=== PATIENT | female | born 1975 | race Caucasian/White ===

== ENCOUNTER → 2018-06-03 10:42 | Outpatient (CLI) | payer BC, SELFPAY ==
--- NOTE | 2018-06-03 11:08 | XR_ITS ---
EXAM: XR lumbar spine min 4V HISTORY: Increasing back pain ITS.REASON: back pain ORDERING PHYSICIAN: Percy Davis MD PATIENT AGE: 43 years COMPARISON: None FINDINGS: Normal alignment. No fracture or dislocation. No lytic or blastic change. No significant degenerative change. The disc spaces are preserved. IMPRESSION: Negative lumbar spine
--- NOTE | 2018-06-03 11:08 | XR_ITS ---
XR hip RT 2-3V w/pelvis HISTORY: ITS.REASON: hip pain ORDERING PHYSICIAN: Percy Davis MD PATIENT AGE: 43 years COMPARISON: None FINDINGS: No fracture or dislocation is evident. No significant degenerative change. No lytic or blastic change. Unremarkable soft tissues. There is an os acetabulum is a normal variant. IMPRESSION: No acute finding. There is a right-sided os acetabulum. This is nonspecific but may be seen with femoral acetabular impingement
[2018-06-03 13:29] LABS: Basophils # 0.1 K/mm3 (0-0.2); Basophils % 0.6 % (0.1-2.0); Eosinophils # 0.2 K/mm3 (0.0-0.4); Eosinophils % 2.2 % (0.1-12.0); Hematocrit 41.7 % (37.0-47.0); Hemoglobin 13.6 g/dL (12.2-16.2); Lymphocytes # 2.5 K/mm3 (0.7-4.5); Lymphocytes % 31.3 K/mm3 (10-50); Mean Corpuscular HGB Conc 32.7 g/dL (31.8-35.4); Mean Corpuscular Hemoglobin 30.6 pg (27.0-31.2); Mean Corpuscular Volume 93.7 fl (81-99); Mean Platelet Volume 9.2 fl (7.4-10.4); Monocytes # 0.6 K/mm3 (0.1-1.0); Monocytes % 7.6 % (1.7-9.3); Neutrophils # 4.7 K/mm3 (1.8-7.8); Neutrophils % 58.3 % (37.0-80.0); Platelet Count 352 K/mm3 (142-424); Red Blood Count 4.45 M/mm3 (4.20-5.40); Red Cell Distribution Width 11.9 % (11.5-17.5); White Blood Count 8.1 K/mm3 (4.8-10.8)
[2018-06-03 13:32] LABS: Alanine Aminotransferase 19 U/L (12-78); Alkaline Phosphatase 65 U/L (46-116); Anion Gap 15.5 mEq/L (5-15); Aspartate Amino Transferase 11 U/L (15-37); Bilirubin,Total 1.6 mg/dL (0.2-1.0); Carbon Dioxide 25 mmol/L (21.0-32.0); Chloride 104 mmol/L (98-107); Potassium 4.5 mmoL/L (3.5-5.1); Sodium 140 mmol/L (136-145); Total Protein,Serum 7.3 gm/dL (6.4-8.2)
[2018-06-03 13:48] LABS: Albumin Level 4.3 gm/dL (3.4-5.0); Albumin/Globulin Ratio 1.4 (1.1-1.8); Blood Urea Nitrogen 13 mg/dL (7-18); Calcium 9.2 mg/dL (8.5-10.1); Glucose 81 mg/dL (74-106)
[2018-06-03 13:51] LABS: Creatinine,Serum 0.77 mg/dL (0.55-1.02); Estimated Glomerular Filt Rate 82 ml/min (>60); GFR (African American) 99 ML/MIN (>60)
[2018-06-03 15:07] LABS: Uric Acid 4.4 mg/dL (2.6-7.2)
[2018-06-03 15:17] LABS: Erythrocyte Sedimentation Rate 12 mm/hr (0-20)
[2018-06-06 05:30] LABS: RA Latex Turbid. <10.0 IU/mL (0.0-13.9)
[2018-06-06 09:42] LABS: Antinuclear Antibodies, IFA Negative (.)
== END ==
LOC: LAB 10:51 → RAD 11:10
PROVIDERS: PCP Emergency Medicine; Visit Provider Emergency Medicine
DX: R53.83 Other fatigue (principal); M54.9 Dorsalgia, unspecified; R52 Pain, unspecified; M25.551 Pain in right hip; M25.552 Pain in left hip
CPT/HCPCS: 72110; 73502; 80053; 84550; 85025; 85651; 86038; 86431

== ENCOUNTER → 2018-06-13 11:03 | Outpatient (POV) | payer BC, SELFPAY | PROVIDERS: Family Provider Emergency Medicine; PCP Emergency Medicine; Visit Provider Specialist | DX: M25.539 Pain in unspecified wrist (principal) | CPT/HCPCS: 95886; 95909 ==

== ENCOUNTER → 2018-06-15 07:48 | Outpatient (CLI) | payer BC, SELFPAY ==
--- NOTE | 2018-06-15 07:50 | MR_ITS ---
MR lumbar spine wo con, MR 3-d myelogram/MRCP HISTORY: Low back pain with right hip pain pain RT hip pain and pain radiates to knee. Symptoms X1YR. No Trauma. No HX back surgery. ITS.REASON: back pain ORDERING PHYSICIAN: Percy Davis MD PATIENT AGE: 43 years Comparison: 06-03-18 TECHNIQUE: Standard multiplanar multiecho sequences are performed without contrast. 3-D MIP and myelographic images are also rendered and reviewed FINDINGS: The spinal cord ends at the T12-L1 level. There is normal alignment. L1-L2 L2-L3 and L3-L4 have an unremarkable appearance. L4-5: Mild facet and ligamentum hypertrophic change with minimal concentric bulging disc with some mild left foraminal narrowing. L5-S1: Unremarkable. 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 IMPRESSION: 1. Mild left foraminal narrowing at L4-L5 from facet and ligamentum flavum hypertrophy and mild bulging disc 2. No canal stenosis or disc herniation evident.
== END ==
PROVIDERS: Family Provider Emergency Medicine; PCP Emergency Medicine; Visit Provider Emergency Medicine
DX: M54.9 Dorsalgia, unspecified (principal)
CPT/HCPCS: 72148; 76376

== ENCOUNTER → 2018-09-22 16:11 | Outpatient (CLI) | payer BC, SELFPAY ==
[2018-09-23 10:51] LABS: Basophils # 0.1 K/mm3 (0-0.2); Eosinophils # 0.1 K/mm3 (0.0-0.4); Eosinophils % 1.8 % (0.1-12.0); Hematocrit 44.9 % (37.0-47.0); Hemoglobin 13.6 g/dL (12.2-16.2); Lymphocytes # 2.8 K/mm3 (0.7-4.5); Lymphocytes % 35.6 % (10-50); Mean Corpuscular HGB Conc 30.2 g/dL (31.8-35.4); Mean Corpuscular Hemoglobin 30.5 pg (27.0-31.2); Monocytes # 0.9 K/mm3 (0.1-1.0); Monocytes % 11.2 % (1.7-9.3); Neutrophils % 50.4 % (37.0-80.0); Platelet Count 395 K/mm3 (142-424); Red Blood Count 4.45 M/mm3 (4.20-5.40); Red Cell Distribution Width 12.3 % (11.5-17.5); White Blood Count 7.9 K/mm3 (4.8-10.8)
[2018-09-23 11:35] LABS: Erythrocyte Sedimentation Rate 1 mm/hr (0-20)
[2018-09-23 12:43] LABS: Alanine Aminotransferase 19 U/L (12-78); Albumin Level 3.9 gm/dL (3.4-5.0); Albumin/Globulin Ratio 1.2 (1.1-1.8); Alkaline Phosphatase 68 U/L (46-116); Aspartate Amino Transferase 8 U/L (15-37); Bilirubin,Total 0.6 mg/dL (0.2-1.0); Blood Urea Nitrogen 13 mg/dL (7-18); Calcium 8.7 mg/dL (8.5-10.1); Carbon Dioxide 26 mmol/L (21.0-32.0); Creatinine,Serum 0.61 mg/dL (0.55-1.02); Estimated Glomerular Filt Rate 108 ml/min (>60); GFR (African American) 130 ML/MIN (>60); Globulin 3.2 gm/dl (1.3-3.2); Glucose 59 mg/dL (74-106); Sodium 138 mmol/L (136-145); Total Protein,Serum 7.1 gm/dL (6.4-8.2)
[2018-09-23 12:50] LABS: Anion Gap 16.6 mEq/L (5-15); Chloride 102 mmol/L (98-107)
[2018-09-23 12:52] LABS: C-Reactive Protein < 0.2 mg/L (0.0-0.9); Potassium 6.6 mmoL/L (3.5-5.1)
[2018-09-26 09:34] LABS: RA Latex Turbid. <10.0 IU/mL (0.0-13.9)
[2018-09-26 10:33] LABS: Anti-Cyclic Citrullinated Pept 7 units (0-19)
[2018-09-26 13:09] LABS: Anti-Centromere B Antibodies <0.2 AI (0.0-0.9); Anti-Jo-1 <0.2 AI (0.0-0.9); Anti-Smith Antibody <0.2 AI (0.0-0.9); Antichromatin Antibodies <0.2 AI (0.0-0.9); Antiscleroderma-70 Antibodies <0.2 AI (0.0-0.9); RNP Antibodies 0.3 AI (0.0-0.9); Sjogren's Anti-SS-A <0.2 AI (0.0-0.9); Sjogren's Anti-SS-B <0.2 AI (0.0-0.9)
[2018-09-26 13:11] LABS: Anti-DNA (DS) Ab Qn <1 IU/mL (0-9)
== END ==
PROVIDERS: Visit Provider Physician Assistant
DX: M25.50 Pain in unspecified joint (principal)
CPT/HCPCS: 80053; 85025; 85651; 86140; 86200; 86225; 86235; 86431

== ENCOUNTER → 2018-09-26 14:59 | Outpatient (CLI) | payer BC, SELFPAY ==
[2018-09-26 15:36] LABS: Potassium 4.6 mmoL/L (3.5-5.1)
== END ==
PROVIDERS: Visit Provider Physician Assistant
DX: E87.5 Hyperkalemia (principal)
CPT/HCPCS: 36415; 84132

== ENCOUNTER → 2018-10-11 15:16 | Outpatient (POV) | payer BC, SELFPAY | PROVIDERS: Visit Provider Dermatology | DX: Z00.00 Encounter for general adult medical examination without abnormal findings (principal) ==

== ENCOUNTER → 2018-11-15 10:32 | Outpatient (POV) | payer BC, SELFPAY | PROVIDERS: Visit Provider Dermatology | DX: Z00.00 Encounter for general adult medical examination without abnormal findings (principal) ==

== ENCOUNTER → 2019-02-14 10:14 | Outpatient (POV) | payer BC, SELFPAY | PROVIDERS: Visit Provider Dermatology | DX: Z00.00 Encounter for general adult medical examination without abnormal findings (principal) ==

== ENCOUNTER → 2019-08-22 14:14 | Outpatient (POV) | payer BC, SELFPAY | PROVIDERS: Visit Provider Dermatology | DX: Z00.00 Encounter for general adult medical examination without abnormal findings (principal) ==

== ENCOUNTER → 2019-11-15 11:16 | Outpatient (CLI) | payer BC, SELFPAY ==
--- NOTE | 2019-11-15 11:33 | XR_ITS ---
PROCEDURE: XR KNEE LT 3V CLINICAL INDICATION: JEFFERY KNEE PAIN COMPARISON: No exams were available for comparison FINDINGS: No fracture or dislocation. No lytic or blastic change. There is normal mineralization. The joint spaces are well-preserved. No significant degenerative/arthritic changes. No erosive changes evident. Other findings:None. IMPRESSION: No acute findings. Dictated by: Joseph Riojas 11/16/2019 15:17 Electronically signed by Joseph Riojas in [place] 11/16/2019 15:17
--- NOTE | 2019-11-15 11:33 | XR_ITS ---
PROCEDURE: XR KNEE RT 3V CLINICAL INDICATION: JEFFERY KNEE PAIN COMPARISON: No exams were available for comparison FINDINGS: No fracture or dislocation. No lytic or blastic change. There is normal mineralization. The joint spaces are well-preserved. No significant degenerative/arthritic changes. No erosive changes evident. Other findings:None. IMPRESSION: No acute findings. Dictated by: Joseph Riojas 11/16/2019 09:16 Electronically signed by Joseph Riojas in [place] 11/16/2019 09:16
[2019-11-15 12:04] LABS: Basophils # 0.1 K/mm3 (0-0.2); Basophils % 0.7 % (0.1-2.0); Eosinophils # 0.2 K/mm3 (0.0-0.4); Eosinophils % 2.3 % (0.1-12.0); Hematocrit 41.8 % (37.0-47.0); Hemoglobin 13.5 g/dL (12.2-16.2); Lymphocytes # 2.7 K/mm3 (0.7-4.5); Lymphocytes % 32.9 % (10-50); Mean Corpuscular HGB Conc 32.2 g/dL (31.8-35.4); Mean Corpuscular Hemoglobin 30.3 pg (27.0-31.2); Mean Corpuscular Volume 94.2 fl (81-99); Mean Platelet Volume 7.6 fl (7.4-10.4); Monocytes # 0.6 K/mm3 (0.1-1.0); Monocytes % 6.8 % (1.7-9.3); Neutrophils # 4.7 K/mm3 (1.8-7.8); Neutrophils % 57.4 % (37.0-80.0); Platelet Count 349 K/mm3 (142-424); Red Blood Count 4.44 M/mm3 (4.20-5.40); White Blood Count 8.2 K/mm3 (4.8-10.8)
[2019-11-15 12:51] LABS: Alanine Aminotransferase 15 U/L (12-78); Albumin Level 4.1 gm/dL (3.4-5.0); Albumin/Globulin Ratio 1.4 (1.1-1.8); Alkaline Phosphatase 64 U/L (46-116); Anion Gap 14.8 mEq/L (5-15); Aspartate Amino Transferase 13 U/L (15-37); Bilirubin,Total 1.4 mg/dL (0.2-1.0); Blood Urea Nitrogen 11 mg/dL (7-18); Calcium 9.2 mg/dL (8.5-10.1); Carbon Dioxide 27 mmol/L (21.0-32.0); Chloride 107 mmol/L (98-107); Creatine Kinase 60 U/L (26-192); Creatinine,Serum 0.73 mg/dL (0.55-1.02); Estimated Glomerular Filt Rate 87 ml/min (>60); GFR (African American) 105 ML/MIN (>60); Globulin 2.9 gm/dl (1.3-3.2); Glucose 89 mg/dL (74-106); Potassium 4.8 mmoL/L (3.5-5.1); Sodium 144 mmol/L (136-145); Thyroid Stimulating Hormone 1.33 uIU/ml (0.358-3.740)
[2019-11-16 12:33] LABS: Vitamin B12 <50 pg/mL (232-1245); Vitamin D 25 Hydroxy 46.5 ng/mL (30.0-100.0)
[2019-11-22 10:44] LABS: Antiparietal Cell Antibody 7.2 Units (0.0-20.0)
== END ==
PROVIDERS: Visit Provider Internal Medicine Adolescent Medicine
DX: E53.8 Deficiency of other specified B group vitamins (principal)
CPT/HCPCS: 36415; 73562; 80053; 82550; 82607; 82652; 83516; 84443; 85025

== ENCOUNTER → 2020-08-21 12:47 | Outpatient (CLI) | payer BC, SELFPAY ==
[2020-08-21 14:53] LABS: Basophils # 0.1 K/mm3 (0-0.2); Basophils % 0.8 % (0.1-2.0); Eosinophils # 0.2 K/mm3 (0.0-0.4); Eosinophils % 1.9 % (0.1-12.0); Hematocrit 42.1 % (37.0-47.0); Hemoglobin 14.2 g/dL (12.2-16.2); Lymphocytes # 2.9 K/mm3 (0.7-4.5); Lymphocytes % 31.9 % (10-50); Mean Corpuscular HGB Conc 33.7 g/dL (31.8-35.4); Mean Corpuscular Hemoglobin 31.6 pg (27.0-31.2); Mean Corpuscular Volume 93.9 fl (81-99); Mean Platelet Volume 7.7 fl (7.4-10.4); Monocytes # 0.6 K/mm3 (0.1-1.0); Monocytes % 6.8 % (1.7-9.3); Neutrophils # 5.3 K/mm3 (1.8-7.8); Neutrophils % 58.5 % (37.0-80.0); Platelet Count 422 K/mm3 (142-424); Red Blood Count 4.48 M/mm3 (4.20-5.40); Red Cell Distribution Width 12.6 % (11.5-17.5); White Blood Count 9.1 K/mm3 (4.8-10.8)
[2020-08-21 15:56] LABS: Alanine Aminotransferase 14 U/L (12-78); Albumin Level 4.5 g/dl (3.5-5.0); Albumin/Globulin Ratio 1.7 (1.1-1.8); Alkaline Phosphatase 72 U/L (38-126); Anion Gap 12.7 mEq/L (5-15); Aspartate Amino Transferase 23 U/L (14-36); Blood Urea Nitrogen 13 mg/dl (7-17); Calcium 9.8 mg/dl (8.4-10.2); Carbon Dioxide 27 mmol/L (22.0-30.0); Chloride 104 mmol/L (98-107); Estimated Glomerular Filt Rate 91 ml/min (>60); GFR (African American) 110 ML/MIN (>60); Globulin 2.6 g/dL (1.3-3.2); Glucose 74 mg/dl (74-100); Magnesium 2.1 mg/dl (1.6-2.3); Potassium 4.7 mmoL/L (3.5-5.1); Sodium 139 mmol/L (136-145); Total Protein,Serum 7.1 g/dl (6.3-8.2)
[2020-08-21 16:11] LABS: Free Thyroxine Index 2.3 ug/dL (5.93-13.13); T4 (Thyroxine) 7.8 ug/dl (5.53-11.0); Triiodothryronine (T3) Uptake 29 % (23.5-40.5)
[2020-08-21 16:24] LABS: Thyroid Stimulating Hormone 1.51 uIU/mL (0.465-4.68)
[2020-08-21 16:45] LABS: Vitamin B12 340 pg/mL (239-931)
== END ==
PROVIDERS: PCP Internal Medicine Adolescent Medicine; Visit Provider Internal Medicine Adolescent Medicine
DX: R00.2 Palpitations (principal); R00.0 Tachycardia, unspecified
CPT/HCPCS: 36415; 80053; 82607; 83735; 84436; 84443; 84479; 85025; 93225; 93226

== ENCOUNTER 2020-09-21 12:00 | Emergency (ER) | payer SELFPAY ==
[2020-09-21 12:31] VITALS: BP 131/85; PULSE 76; RESP 19; TEMP 36.7; O2SAT 99; BMI 30.4
--- NOTE | 2020-09-21 12:36 | HMH.EDUTC ---
[facility] [place] Clinical Impression: Exposure to COVID-19 virus Disposition: Home, Self-Care Condition on Discharge: Good Instructions: Preventing the Spread of Coronavirus Discharge Instructions Additional Instructions: *Monitor Temp, Over the counter Motrin or Tylenol as directed/as needed Tylenol every 4 hours and Motrin every 6 hours (as long as your family doctor has told you that you can take it) for fever or pain. and straight to ER if unable to lower temp less than 101.0 after medication given *Warm salt water gargles may help to soothe the throat *Throat Lozenges *Warm fluids like tea with honey may help to soothe the throat *Sleep elevated *Humidifier/Vaporizer Follow up IMMEDIATELY for new or worsening symptoms or no Noticeable improvement over the next 48-72 hours. 911 for difficulty breathing or swallowing You was tested for today for COVID19 your test result should be back in the next 24-48 hours, you may call to the [facility] later today or tomorrow to see if your test results are back and the result [phone] [facility] hours are 9am-9pm You was given a handout with instructions for Self Quarantine and Self isolation for while you wait on test results and what to do if they are positive If you are positive the Health Dept will be contacting you also Prescriptions: Fluticasone Propionate [Flonase 50mcg nasal spray 16gm] 1 spr NS DAILY #1 bottle Transmission Status: Pending to [id number] Referrals: Suresh Sam MD [Primary Care Provider] - As needed Forms: Work/School Release Time of Disposition: 12:46 Medical Decision Making - Yash Inquiry Pt receiving controlled substance: No Yash was queried for this patient: No Vital Signs: 09/21/20 12:31 Temperature 98.1 F Temperature Source Oral Pulse Rate [Right Brachial] 76 Respiratory Rate 19 Blood Pressure [Right Arm] 131/85 Blood Pressure Mean [Right Arm] 100 Blood Pressure Source [Right Arm] Automatic Cuff Blood Pressure Position [Right Arm] Sitting 02 Sat by Pulse Oximetry 99 Oxygen Delivery Method Room Air Orders (Tests/Meds): ORDERS Category Date Time Status Covid-19 Nasal PCR ([facility]) Routine Lab 09/21/20 12:00 [place] [facility] [place] - General Stated complaint: covid test Time Seen by Provider: 09/21/20 12:36 Mode of Arrival: Family Vehicle Description of Symptoms (Recalled from Triage Doc. by RN): Pt exposed to covid 1 wk ago and is now having loss of taste and dizziness HEENT Symptoms (Recalled from RN notes): No Resp Symptoms (Recalled from RN notes): Yes Skin Symptoms (Recalled from RN notes): No MS Symptoms (Recalled from RN notes): No Functional Status (Recalled from RN notes): wnl - History of Present Illness Provider Complaint: Patient states that she was exposed to someone with COVID about a week ago State that yesterday she loss her sense of taste and smell States that she has felt like she may have a sinus infection but not blowing anything from her nose so she come in to get checked - Related Data Previous Rx's Medication Instructions Recorded acetaminophen 300 mg-codeine 30 mg 1 tab PO Q6H PRN #12 tab 06/03/18 tablet gabapentin 100 mg capsule 100 mg PO DAILY #30 cap 06/03/18 meloxicam 15 mg tablet 15 mg PO DAILY #30 tab 09/22/18 Fluticasone Propionate [Flonase 1 spr NS DAILY #1 bottle 09/21/20 50mcg nasal spray 16gm] Allergies Allergy/AdvReac Type Severity Reaction Status Date / Time INGREDIENT: NO KNOWN - NO Allergy Unknown Uncoded 09/22/18 15:26 KNOWN DRUG ALLERGY - Worker's Comp Is this a Worker's Comp case?: No [facility] History - Hepatitis A Screen Drug use history?: No High risk sexual behaviors?: No History of sexually transmitted infection?: No Currently employed?: No Childcare worker?: No Do you have indoor plumbing?: Yes Do you have electricity?: Yes Attestation statement:: This patient has been screened for Hepatitis A risk factors. I have reviewed the patien
[2020-09-21 12:58] VITALS: BP 131/85; PULSE 76; RESP 19; TEMP 36.7; O2SAT 99
--- NOTE | 2020-09-21 17:11 | PC.NURSE ---
Patient notified of positive covid results. Educated on quarantine.
== END 2020-09-21 12:59 | disposition home or self-care (01) ==
PROVIDERS: Emergency Provider Nurse Practitioner; PCP Internal Medicine Adolescent Medicine
DX: U07.1 COVID-19 (principal)
CPT/HCPCS: 99201; U0003

== ENCOUNTER 2021-04-25 09:26 | Emergency (ER) | payer BC, SELFPAY ==
[2021-04-25 09:35] VITALS: BP 119/74; PULSE 81; RESP 14; TEMP 36.9; O2SAT 99; BMI 30.8
--- NOTE | 2021-04-25 09:44 | HMH.EDUTC ---
[facility] [place] Impression: Exposure to COVID-19 virus Disposition: Home, Self-Care Condition on Discharge: Good Instructions: Preventing the Spread of Coronavirus Discharge Instructions Additional Instructions: Drink plenty of fluids. Take tylenol for pain or fever. Return if you begin to have difficulty breathing. Follow up with your regular doctor. GO TO THE ER FOR ANY WORSENING SYMPTOMS Referrals: Suresh Sam MD [Primary Care Provider] - Time of Disposition: 09:46 Medical Decision Making - Medical Records Medical records reviewed: No: I reviewed the patient's medical records. - Yash Inquiry Pt receiving controlled substance: No Vital Signs: 04/25/21 09:35 04/25/21 10:15 Temperature 98.5 F 98.5 F Temperature Source Oral Pulse Rate 81 Pulse Rate [Right] 81 Respiratory Rate 14 16 Blood Pressure 119/74 Blood Pressure [Right Arm] 119/74 Blood Pressure Mean [Right Arm] 89 Blood Pressure Source [Right Arm] Automatic Cuff Blood Pressure Position [Right Arm] Sitting 02 Sat by Pulse Oximetry 99 Oxygen Delivery Method Room Air Orders (Tests/Meds): ORDERS Category Date Time Status Covid-19 Nasal PCR ([facility]) Routine Lab 04/25/21 09:42 [place] [facility] [place] - General Stated complaint: wants covid test Time Seen by Provider: 04/25/21 09:44 - History of Present Illness Provider Complaint: She is here to have a covid-19 test after being exposed to covid approx 6 days ago. She denies any symptoms. She had covid-19 last August and she has been vaccinated since then. - Related Data Previous Rx's Medication Instructions Recorded acetaminophen 300 mg-codeine 30 mg 1 tab PO Q6H PRN #12 tab 06/03/18 tablet gabapentin 100 mg capsule 100 mg PO DAILY #30 cap 06/03/18 meloxicam 15 mg tablet 15 mg PO DAILY #30 tab 09/22/18 Fluticasone Propionate [Flonase 1 spr NS DAILY #1 bottle 09/21/20 50mcg nasal spray 16gm] Allergies Allergy/AdvReac Type Severity Reaction Status Date / Time INGREDIENT: NO KNOWN - NO Allergy Unknown Uncoded 09/22/18 15:26 KNOWN DRUG ALLERGY [facility] History - Hepatitis A Screen Attestation statement:: This patient has been screened for Hepatitis A risk factors. I have reviewed the patient's past medical history: Yes Medical History: Denies:: Diabetes Mellitus Type 1, Diabetes Mellitus Type 2, Internal Pacemaker Other Surgeries: Yes: , Other. No: Pacemaker Amputation: No Fractures: No - Social History Smoking Status: Never smoker Alcohol Intake: never Alcohol Intake Frequency:: a few times a month Substance Use Type: denies use Occupational Status: employed Household Members: family Family Hx:: Diabetes, Thyroid Disorder ROS Obtained: Yes All systems reviewed & no additional complaints - Constitutional Constitutional: Reports system reviewed and no additional complaints, except as docu - Eyes Eyes: Reports system reviewed and no additional complaints, except as docu - ENT Ears, Nose, Mouth, and Throat: Reports system reviewed and no additional complaints, except as docu - Cardiovascular Cardiovascular: Reports system reviewed and no additional complaints, except as docu - Respiratory Respiratory: Reports system reviewed and no additional complaints, except as docu - Gastrointestinal Gastrointestingal: Reports: system reviewed and no additional complaints, except as docu Physical Exam - General General appearance: alert, in no apparent distress - Head Head exam: atraumatic, normocephalic, normal inspection - Eye Eye exam: Present: normal appearance, PERRL, EOMI - ENT ENT exam: Present: normal exam, normal oropharynx, mucous membranes moist, TM's normal bilaterally, normal external ear exam - Neck Neck exam: Present: normal inspection, full ROM, trachea midline. Absent: meningismus, lymphadenopathy - Chest Chest inspection: Present: normal inspection, symmetric chest wall ri
[2021-04-25 10:15] VITALS: BP 119/74; PULSE 81; RESP 16; TEMP 36.9
== END 2021-04-25 10:15 | disposition home or self-care (01) ==
PROVIDERS: Emergency Provider Nurse Practitioner Family; PCP Internal Medicine Adolescent Medicine
DX: Z20.822 Contact with and (suspected) exposure to COVID-19 (principal)
CPT/HCPCS: 99202; G0463; U0003

== ENCOUNTER → 2021-07-19 10:32 | Outpatient (CLI) | payer BC, SELFPAY ==
[2021-07-19 10:51] LABS: Basophils # 0.1 K/mm3 (0-0.2); Basophils % 0.8 % (0.1-2.0); Eosinophils # 0.2 K/mm3 (0.0-0.4); Hematocrit 42.1 % (37.0-47.0); Hemoglobin 13.7 g/dL (12.2-16.2); Lymphocytes # 3.2 K/mm3 (0.7-4.5); Lymphocytes % 29.9 % (10-50); Mean Corpuscular HGB Conc 32.5 g/dL (31.8-35.4); Mean Corpuscular Hemoglobin 31.6 pg (27.0-31.2); Mean Corpuscular Volume 97.2 fl (81-99); Mean Platelet Volume 8.1 fl (7.4-10.4); Monocytes # 0.6 K/mm3 (0.1-1.0); Monocytes % 5.4 % (1.7-9.3); Neutrophils # 6.5 K/mm3 (1.8-7.8); Neutrophils % 61.9 % (37.0-80.0); Platelet Count 414 K/mm3 (142-424); Red Blood Count 4.33 M/mm3 (4.20-5.40); Red Cell Distribution Width 12.6 % (11.5-17.5); White Blood Count 10.5 K/mm3 (4.8-10.8)
[2021-07-19 11:30] LABS: Alanine Aminotransferase 12 U/L (12-78); Albumin Level 4.3 g/dl (3.5-5.0); Albumin/Globulin Ratio 1.5 (1.1-1.8); Alkaline Phosphatase 56 U/L (38-126); Anion Gap 12.7 mEq/L (5-15); Aspartate Amino Transferase 19 U/L (14-36); Bilirubin,Total 1.3 mg/dl (0.2-1.3); Blood Urea Nitrogen 11 mg/dl (7-17); Calcium 9.6 mg/dl (8.4-10.2); Carbon Dioxide 27 mmol/L (22.0-30.0); Chloride 104 mmol/L (98-107); Estimated Glomerular Filt Rate 108 ml/min (>60); GFR (African American) 131 ML/MIN (>60); Globulin 2.8 g/dL (1.3-3.2); Glucose 91 mg/dl (74-100); Potassium 4.7 mmoL/L (3.5-5.1); Sodium 139 mmol/L (136-145); Total Protein,Serum 7.1 g/dl (6.3-8.2)
[2021-07-19 11:47] LABS: 25-OH Vitamin D, Total 63.3 ng/mL (30-100)
[2021-07-19 12:19] LABS: Vitamin B12 288 pg/mL (239-931)
== END ==
PROVIDERS: Visit Provider Internal Medicine Adolescent Medicine
DX: G43.109 Migraine with aura, not intractable, without status migrainosus (principal); E66.3 Overweight; Z68.29 Body mass index [BMI] 29.0-29.9, adult
CPT/HCPCS: 36415; 80053; 82306; 82607; 85025

== ENCOUNTER → 2021-09-01 07:45 | Outpatient (CLI) | payer BC, SELFPAY ==
--- NOTE | 2021-09-01 07:51 | MR_ITS ---
PROCEDURE: MR HEAD/BRAIN WO CON CLINICAL INDICATION: H/A WITH DIZZINESS X 2 MONTHS COMPARISON: No exams were available for comparison TECHNIQUE: Routine multiplanar multi echo sequences are performed without gadolinium enhancement. FINDINGS: No midline shift, mass effect, intracranial hemorrhage, or hydrocephalus is evident. There is a small cortical area of increased T2 and diffusion signal with isointense ADC signal in the left frontal parietal junction laterally suggesting a subacute area of infarction. The cerebellopontine angles, cerebellum, and brainstem have an unremarkable appearance. There is partial empty sella as a normal variant. The optic chiasm, corpus callosum, and craniocervical junction have an unremarkable appearance. No mastoid effusion. There is moderate to severe mucosal thickening of the sphenoid sinus on the right. The sphenoid sinuses extend into the sphenoid bone more than normal with opacification of the right sphenoid air cells. There is mild mucosal thickening of the ethmoid sinus. IMPRESSION: Small subcortical area of increased T2 signal in the left frontal parietal junction with increased diffusion and isointense ADC signal. This could represent an area of subacute infarction. Other etiologies not excluded such as an infiltrating lesion or even an area of demyelinating white matter disease. Suggest MRI of the head with contrast for further evaluation. Sinusitis of the sphenoid sinus on the right Dictated by: Tommy Rojas MD 09/02/2021 10:48 Tommy Rojas MD in [place] 09/02/2021 10:48
== END ==
PROVIDERS: PCP Internal Medicine Adolescent Medicine; Visit Provider Internal Medicine Adolescent Medicine
DX: G43.109 Migraine with aura, not intractable, without status migrainosus (principal)
CPT/HCPCS: 70551

== ENCOUNTER → 2021-09-12 09:27 | Outpatient (CLI) | payer BC, SELFPAY ==
--- NOTE | 2021-09-12 09:29 | MR_ITS ---
PROCEDURE INFORMATION: Exam: MR Head Without and With Contrast Exam date and time: 09/12/2021 9:29 AM Age: 46 years old Clinical indication: Pain; Headache; Additional info: Migraine with aura. Headache [id number]. Ache posterior left side of head. Abnormal mri 09-01-21. 17ml prohance given. Lot: [id number] exp: Apr 2023 TECHNIQUE: Imaging protocol: MR of the head without and with intravenous contrast. Contrast material: PROHANCE; Contrast volume: 17 ml; Contrast route: IV; COMPARISON: MR HEAD/BRAIN WO CON 09/01/2021 8:04 AM FINDINGS: Unchanged T2 shine through artifact along the LEFT frontal subcortical white matter with normal overlying cortex. Subtle adjacent linear/nodular enhancement along the medial margin of the lesion with the remainder of the T2 abnormality demonstrating no enhancement. . Remainder of the brain parenchyma demonstrates normal signal intensity and enhancement. No other intra- or extra-axial mass or abnormality. No mass effect or midline shift. No evidence of restricted diffusion in the supra-or infratentorial brain. . Prominent/enlarged sella containing CSF signal intensity fluid suggestive of an empty sella. Pituitary gland is displaced along the floor of the sella. Remainder of the midline brain structures including the corpus callosum, pineal region, and craniovertebral junction are unremarkable. . Ventricles and sulci are normal without evidence of hydrocephalus. Intracranial vessels demonstrate a normal flow-void. Significantly improved mucoperiosteal thickening in the RIGHT sphenoid sinus. IMPRESSION: 1. Subtle linear/nodular enhancement along the medial margin of site of T2 prolongation demonstrating T2 shine through artifact in the LEFT frontal subcortical white matter. 2. NO RESTRICTED DIFFUSION, no surrounding edema or mass effect and no change compared to prior. 3. Differential diagnosis includes vascular malformation, low-grade neoplasm, focal encephalitis, demyelination and subacute/chronic ischemic infarct. COMMENTS: No sequences sensitive to blood/blood products (GRE or SWI) were performed on the current or the prior examination. Although unlikely, possibility of hemorrhagic lesion, cannot be excluded on these studies.
== END ==
PROVIDERS: PCP Internal Medicine Adolescent Medicine; Visit Provider Internal Medicine Adolescent Medicine
DX: G43.109 Migraine with aura, not intractable, without status migrainosus (principal)
CPT/HCPCS: 70553; A9576

== ENCOUNTER → 2022-03-27 09:40 | Outpatient (CLI) | payer BC, SELFPAY ==
--- NOTE | 2022-03-27 09:45 | MR_ITS ---
FINAL REPORT CLINICAL HISTORY: OTHER TEAR OF MEDIAL MENISCUS OF KNEE CURRENT INJURY. X1WK AGO TWISTED KNEE AND KNEE POPPED. KNEE INSTABILITY. BURNING SENSATION MEDIAL SIDE OF KNEE. EXAM WAS FIRST ORDERED WITH CONTRAST BY MISTAKE. CONTRAST WAS NOT GIVEN. FINDINGS: Multiplanar MR imaging of the left knee was performed without contrast. The medial and lateral menisci are intact without evidence of meniscal tear. Anterior cruciate ligament is torn. The posterior cruciate ligament is intact. The medial collateral ligament and lateral ligamentous complex are intact. The patellar and quadriceps tendons are intact. There is no evidence of fracture. There is moderate chondromalacia patella. Moderate joint effusion is seen. The musculature is intact. No soft tissue mass or cyst is identified. IMPRESSION: ACL tear. Moderate chondromalacia patella. Reviewed, Interpreted and Dictated by Raúl Joshi III, MD Transcribed by Radha Cheek Authenticated and [facility]
== END ==
PROVIDERS: PCP Internal Medicine Adolescent Medicine; Visit Provider Internal Medicine Adolescent Medicine
DX: S83.249A Other tear of medial meniscus, current injury, unspecified knee, initial encounter (principal)
CPT/HCPCS: 73721

== ENCOUNTER 2022-09-15 16:00 | Outpatient (RCR) | payer BC, SELFPAY | END 2022-09-15 16:05 | disposition home or self-care (01) | LOC: PT 16:00 | PROVIDERS: PCP Internal Medicine Adolescent Medicine; Visit Provider Orthopaedic Surgery | DX: S83.512D Sprain of anterior cruciate ligament of left knee, subsequent encounter (principal) | CPT/HCPCS: 97010; 97014; 97016; 97110; 97112; 97116; 97140; 97163; 97164; 97530; 97760; G0283 ==

== ENCOUNTER → 2023-04-01 16:05 | Outpatient (CLI) | payer OTHER, SELFPAY ==
--- NOTE | 2023-04-01 16:08 | MM_ITS ---
PROCEDURE INFORMATION: Exam: MG Bilateral Screening 3D Mammography Exam date and time: 04/01/2023 3:57 PM Age: 47 years old Clinical indication: Screening mammogram TECHNIQUE: Imaging protocol: Bilateral Screening tomosynthesis and 2D mammography including computer-aided detection (CAD) when performed. COMPARISON: No relevant prior studies available. FINDINGS: MAMMOGRAPHY: Breast composition: There are scattered areas of fibroglandular density. Mass: None. Architectural distortion: No new or suspicious architectural distortion. Calcifications: No new or suspicious calcifications are present Asymmetric density: No new or suspicious asymmetric density is present Skin thickening: None. Axillary adenopathy: None. IMPRESSION: No mammographic evidence of malignancy. Recommend annual screening mammography unless otherwise clinically indicated. ASSESSMENT: BI-RADS category 1: Negative
== END ==
PROVIDERS: PCP Internal Medicine Adolescent Medicine; Visit Provider Internal Medicine Adolescent Medicine
DX: Z12.31 Encounter for screening mammogram for malignant neoplasm of breast (principal)
CPT/HCPCS: 77063; 77067

== ENCOUNTER → 2023-06-14 15:55 | Outpatient (CLI) | payer OTHER, SELFPAY | PROVIDERS: PCP Nurse Practitioner Family; Visit Provider Nurse Practitioner Family | DX: R00.2 Palpitations (principal) | CPT/HCPCS: 93225; 93226 ==

== ENCOUNTER → 2023-06-18 15:49 | Outpatient (CLI) | payer OTHER, SELFPAY | PROVIDERS: PCP Internal Medicine Adolescent Medicine; Visit Provider Nurse Practitioner Family | DX: R40.0 Somnolence (principal) ==

== ENCOUNTER → 2023-07-27 14:42 | Outpatient (CLI) | payer OTHER, SELFPAY | PROVIDERS: PCP Internal Medicine Adolescent Medicine; Visit Provider Nurse Practitioner Family | DX: G47.30 Sleep apnea, unspecified (principal); R06.83 Snoring | CPT/HCPCS: 95806 ==

== ENCOUNTER → 2023-09-19 20:26 | Outpatient (CLI) | payer OTHER, SELFPAY | PROVIDERS: PCP Internal Medicine Adolescent Medicine; Visit Provider Nurse Practitioner Family | DX: G47.30 Sleep apnea, unspecified (principal); R06.83 Snoring | CPT/HCPCS: 95810 ==

== ENCOUNTER 2024-04-30 17:31 | Observation (INO) | payer OTHER, SELFPAY ==
[2024-04-30 17:32] VITALS: BP 144/78; PULSE 89; RESP 20; TEMP 36.9; O2SAT 96; BMI 30.5
--- NOTE | 2024-04-30 17:48 | ED_ITS ---
<Statement entered by Luc Faustin MD - 04/30/24 22:27> I was consulted by the TATI, and we discussed the complexity of the problems being addressed. I approved the treatment and management plan for this patient's care in the emergency department, thus performing a substantive portion of the medical decision making. Luc Faustin MD Discharge Plan Disposition Patient Disposition: Admitted Condition: Fair Clinical Impressions Clinical Impression: Colitis, Appendicitis Discharge ED Provider: Luc Faustin General Adult HPI General Chief complaint: Abdominal Pain Stated complaint: weak,abdominal pain , diarrhea Time Seen by Provider: 04/30/24 17:36 History of Present Illness HPI narrative: Patient presents for evaluation of diarrhea and abdominal pain. Patient gives a history of 3 to 4 days of generalized abdominal pain and diarrhea. She denies chest pain shortness of breath fever chills hemoptysis hematochezia melena vomiting. She has no focal tenderness but has diffuse abdominal tenderness per her report. She still has her gallbladder appendix and reproductive organs. Related Data Previous Rx's Medication Instructions Recorded acetaminophen 300 mg-codeine 30 mg 1 tab PO Q6H PRN pain #12 tabs 06/03/18 tablet (Tylenol-Codeine #3) gabapentin 100 mg capsule 100 mg PO DAILY #30 caps 06/03/18 (Neurontin) meloxicam 15 mg tablet (Mobic) 15 mg PO DAILY #30 tabs 09/22/18 fluticasone propionate 50 1 spr NS DAILY ##1 09/21/20 mcg/actuation nasal spray,suspension Allergies Allergy/AdvReac Type Severity Reaction Status Date / Time No Known Allergies Allergy Unverified 09/12/21 11:34 [facility] Disclaimer: The information contained in this section may have been updated after the patient was seen, as this information can be updated by other users. Medical History (Updated 04/30/24 @ 21:40 by LEE Alfred) Squamous cell carcinoma Family History (Updated 11/07/18 @ 08:24 by LEE Jaeger) Other Squamous cell carcinoma Social History Smoking Status: Never smoker alcohol intake: never substance use type: denies use current occupational status: employed Travel in the last 8 weeks: None household members: family ROS Obtained: Yes Systems reviewed as appropriate & no additional complaints except as documented Physical Exam General General appearance: alert and in no apparent distress Respiratory Respiratory exam: Present normal lung sounds bilaterally Cardiovascular Cardiovascular exam: Present regular rate and normal rhythm; Absent normal heart sounds Abdominal Exam Abdominal exam: Present soft, tenderness (Diffuse moderate tenderness to palpation without rebound guarding or rigidity.) and normal bowel sounds; Absent guarding or rebound Neurological Exam Neurological exam: Present alert and oriented X3 Medical Decision Making Medical Records Medical records reviewed: Yes I reviewed the patient's medical records. Yash Inquiry Pt receiving controlled substance: No Vital Signs: 04/30/24 17:32 Temperature 98.4 F Temperature Source Oral Pulse Rate [Left] 89 Respiratory Rate 20 Blood Pressure [Right Arm] 144/78 H Blood Pressure Mean [Right Arm] 100 02 Sat by Pulse Oximetry 96 Oxygen Delivery Method Room Air Lab Data Lab results reviewed: Yes I reviewed the patient's lab results. Lab Results 04/30/24 18:22: WBC 12.9 H, RBC 4.29, Hgb 13.6, Hct 41.5, MCV 96.8, MCH 31.8 H, MCHC 32.8, RDW 12.9, Plt Count 394, MPV 7.6, Neut % (Auto) 74.6, Lymph % (Auto) 17.6, [place] % (Auto) 5.5, Eos % (Auto) 1.7, Baso % (Auto) 0.5, Neut # (Auto) 9.7 H, Lymph # (Auto) 2.3, [place] # (Auto) 0.7, Eos # (Auto) 0.2, Baso # (Auto) 0.1, Sodium 138, Potassium 3.7, Chloride 106, Carbon Dioxide 28, Anion Gap 7.7, BUN 6 L, Creatinine 0.60, Estimated Creat Clear 160, Estimated GFR 107, Est GFR ( Amer) 129, Glucose 95, Calcium 9.1, Magnesium 1.9, Total Bilirubin 0.9, AST 29, ALT 24, Alkaline Phosphatase 51, C-Reactive Protein 10.4 H, Total Protein 7.4, Albumin 4.2, Globulin 3.2, Albumin/Globulin Ratio 1.3, Lipase 61, Serum HCG, Qual Negative 04/30/24 19:04: Urine Color Straw, Urine Appearance Clear, Urine pH 6.0, Ur Specific [place] <= 1.005, Urine Protein Negative, Urine Glucose (UA) Negative, Urine Ketones Negative, Urine Blood Trace-i, Urine Nitrate Negative, Urine Bilirubin Negative, Urine Urobilinogen 0.2, Ur Leukocyte Esterase Negative, Urine RBC Occasional, Urine WBC Occasional, Ur Squamous Epith Cells 3-5, Urine Bacteria Trace 04/30/24 20:57: Stool Occult Blood Positive A 04/30/24 18:22 04/30/24 18:22 Orders (Tests/Meds): ED MEDICATIONS Generic Name Dose Route Start Last Admin Trade Name Frerichi PRN Reason Stop Dose Admin Piperacillin Sod/Tazobactam 50 mls @ 100 mls/hr 04/30/24 21:37 04/30/24 21:54 Sod 3.375 gm/ Sodium Chloride IV 04/30/24 22:06 100 mls/hr ONCE ONE Administration Metronidazole 500 mg in 100 mls @ 100 mls/hr 04/30/24 21:40 Flagyl 500mg/100ml Ivpb IV 04/30/24 22:39 ONCE ONE Sodium Chloride 10 ml 04/30/24 20:14 04/30/24 20:14 Sodium Chloride 0.9% 10ml Syr (Rad Only) IV 05/30/24 20:13 10 ml NEEDED PRN Administration Maintain IV Site Discontinued Medications Generic Name Dose Route Start Last Admin Trade Name Freq PRN Reason Stop Dose Admin Acetaminophen 1,000 mg 04/30/24 17:56 04/30/24 18:08 Acetaminophen 1,000mg/100ml Vial IV 04/30/24 17:57 1,000 mg ONCE ONE Administration Lactated Ringer's 1,000 mls @ 999 mls/hr 04/30/24 17:56 04/30/24 18:08 Lactated Ringer's 1000 Ml Bag IV 04/30/24 18:56 999 mls/hr .Q1H1M ONE Administration Iopamidol 75 ml 04/30/24 20:14 04/30/24 20:14 Iopamidol-370 (76%);100ml Bottle IV 04/30/24 20:15 75 ml ONCE ONE Administration ORDERS Category Date Time Status CT abdomen pelvis w con Stat Cat Scan 04/30/24 20:05 Completed CBC w/Auto Diff [Complete Blood Count Auto Diff] Stat Lab 04/30/24 18:22 Completed CMP [Comprehensive Metabolic Panel] Stat Lab 04/30/24 18:22 Completed CRP [C-Reactive Protein] Stat Lab 04/30/24 18:22 Completed Diarrhea 23 Panel, PCR Stat Lab 04/30/24 20:57 Received HCG Qualitative, Serum Stat Lab 04/30/24 18:22 Completed Lactic Acid Stat Lab 04/30/24 17:57 Ordered Lipase Stat Lab 04/30/24 18:22 Completed Magnesium Stat Lab 04/30/24 18:22 Completed Occult Blood,Stool Stat Lab 04/30/24 20:57 Completed UA [Urinalysis and Microscopic] Stat Lab 04/30/24 19:04 Completed Tissue Perfus/Sepsis Re-Eval Sepsis Re-Evaluation Performed: Yes Date Performed: 04/30/24 Time Performed: 22:06 Medical Decision Narrative: In summary patient is a 49-year-old female who presents to the emergency department for evaluation of abdominal pain and diarrhea. Patient is hemodynamically stable upon arrival, afebrile. Physical exam is remarkable for diffuse abdominal tenderness without rebound or guarding or rigidity. Bowel sounds are normal active. Differential diagnosis includes enteritis versus bowel obstruction versus diverticulitis etc. Initial workup will be conducted with hematologic labs CT scan abdomen pelvis. Initial interventions include crystalloid bolus Toradol Tylenol. Initial workup reviewed by me shows the patient has no better white count and my informal review of her CT imaging shows transverse and descending colitis and periappendiceal stranding. Upon repeat evaluation patient still has discomfort but better after initial intervention. Given this had interactive discussion with general surgery Dr. Fatima about patient management. Plan is to put the patient in on IV antibiotics hold n.p.o. after midnight and he will evaluate in the a.m. for possible intervention, I then had a interactive discussion with hospital medicine who has agreed to admission for further evaluation and care. Critical Care Critical Care Time Critical Care Time: No
[2024-04-30] MEDS: ACETAMINOPHEN 1,000MG/100ML VIAL 1000 MG IV (18:08)
[2024-04-30] MEDS: LACTATED RINGERS 1000ML 1,000 ML 999 ML IV (18:08)
[2024-04-30 18:30] LABS: Basophils # 0.1 K/mm3 (0-0.2); Basophils % 0.5 % (0.1-2.0); Eosinophils # 0.2 K/mm3 (0.0-0.4); Eosinophils % 1.7 % (0.1-12.0); Hematocrit 41.5 % (37.0-47.0); Hemoglobin 13.6 g/dL (12.2-16.2); Lymphocytes # 2.3 K/mm3 (0.7-4.5); Lymphocytes % 17.6 % (10-50); Mean Corpuscular HGB Conc 32.8 g/dL (31.8-35.4); Mean Corpuscular Hemoglobin 31.8 pg (27.0-31.2); Mean Corpuscular Volume 96.8 fl (81-99); Mean Platelet Volume 7.6 fl (7.4-10.4); Monocytes # 0.7 K/mm3 (0.1-1.0); Monocytes % 5.5 % (1.7-9.3); Neutrophils # 9.7 K/mm3 (1.8-7.8); Neutrophils % 74.6 % (37.0-80.0); Platelet Count 394 K/mm3 (142-424); Red Blood Count 4.29 M/mm3 (4.20-5.40); Red Cell Distribution Width 12.9 % (11.5-17.5); White Blood Count 12.9 K/mm3 (4.8-10.8)
[2024-04-30 18:39] LABS: Chloride 106 mmol/L (98-107); HCG Qualitative, Serum Negative (Negative); Potassium 3.7 mmoL/L (3.5-5.1); Sodium 138 mmol/L (136-145)
[2024-04-30 18:42] LABS: Alanine Aminotransferase 24 U/L (12-78); Albumin Level 4.2 g/dl (3.5-5.0); Albumin/Globulin Ratio 1.3 (1.1-1.8); Alkaline Phosphatase 51 U/L (38-126); Anion Gap 7.7 mEq/L (5-15); Aspartate Amino Transferase 29 U/L (14-36); Bilirubin,Total 0.9 mg/dl (0.2-1.3); Blood Urea Nitrogen 6 mg/dl (7-17); Calcium 9.1 mg/dl (8.4-10.2); Carbon Dioxide 28 mmol/L (22.0-30.0); Creatinine Clearance Estimated 160 mL/min (50-200); Estimated Glomerular Filt Rate 107 ml/min (>60); GFR (African American) 129 ML/MIN (>60); Globulin 3.2 g/dL (1.3-3.2); Glucose 95 mg/dl (74-100); Lipase 61 U/L (23-300); Total Protein,Serum 7.4 g/dl (6.3-8.2)
[2024-04-30 18:43] LABS: Magnesium 1.9 mg/dl (1.6-2.3)
[2024-04-30 18:48] LABS: C-Reactive Protein 10.4 mg/L (0-4)
[2024-04-30 19:08] LABS: Microscopic, Urine URINE MICROSCOPIC (MICROSCOPIC)
[2024-04-30 19:24] LABS: Appearance,Urine CLEAR (Clear); Bilirubin,Urine Negative (Negative); Blood, Urine TRACE-I (Negative); Glucose,Urine (UA) Negative (Negative); Ketones,Urine Negative (Negative); Leukocyte Esterase,Urine Negative (Negative); Nitrate,Urine Negative (Negative); Protein,Urine Negative (Negative); Specific Gravity, Urine <= 1.005 (1.005-1.030); Urobilinogen,Urine 0.2 EU/dl (0.2)
[2024-04-30 19:25] LABS: Color,Urine Straw (Yellow)
[2024-04-30 19:43] LABS: RBC,Urine Occasional #/hpf (0-3)
[2024-04-30 19:44] LABS: Bacteria,Urine Trace /lpf; WBC,Urine Occasional #/hpf (0-3)
--- NOTE | 2024-04-30 20:05 | CT_ITS ---
PROCEDURE INFORMATION: Exam: CT Abdomen And Pelvis With Contrast Exam date and time: 04/30/2024 8:15 PM Age: 49 years old Clinical indication: Abdominal pain; Localized; Lower; Additional info: Acute abdominal pain TECHNIQUE: Imaging protocol: Computed tomography of the abdomen and pelvis with contrast. Radiation optimization: All CT scans at this facility use at least one of these dose optimization techniques: automated exposure control; mA and/or kV adjustment per patient size (includes targeted exams where dose is matched to clinical indication); or iterative reconstruction. Contrast material: ISOVUE; Contrast volume: 75 ml; Contrast route: IV; COMPARISON: CR HIPCMRT XR hip RT 2-3V w/pelvis 06/03/2018 11:22 AM FINDINGS: Liver: Mild hepatomegaly. No liver lesions. Gallbladder and biliary ducts: Normal. No calcified stones. No ductal dilation. Pancreas: Normal. No ductal dilation. Spleen: Calcified granulomas in the spleen. No splenomegaly. Adrenal glands: Normal. No mass. Kidneys and ureters: Normal. No hydronephrosis. Stomach and bowel: Severe wall thickening extending from the distal transverse colon to the mid descending colon with extensive surrounding fat stranding. No bowel obstruction. Appendix: The appendix is hyperenhancing with periappendiceal inflammatory changes, consistent with acute appendicitis. Intraperitoneal space: Mild ascites. Vasculature: Unremarkable. No abdominal aortic aneurysm. Lymph nodes: Calcified subcarinal lymph node. No adenopathy. Urinary bladder: Unremarkable as visualized. Reproductive: Unremarkable as visualized. Bones/joints: Unremarkable. No acute fracture. Soft tissues: Unremarkable. IMPRESSION: 1. The appendix is hyperenhancing with periappendiceal inflammatory changes, consistent with acute appendicitis. 2. Severe wall thickening extending from the distal transverse colon to the mid descending colon with extensive surrounding fat stranding appears consistent with colitis. 3. Mild ascites.
[2024-04-30] MEDS: SODIUM CHLORIDE 0.9% 10ML SYR (RAD ONLY) 10 ML IV (20:14)
[2024-04-30] MEDS: IOPAMIDOL-370 (76%);100ML BOTTLE 75 ML IV (20:14)
[2024-04-30 21:00] LABS: Adenovirus F 40/41, stool Not Detected (NotDetected); Astrovirus Not Detected (NotDetected); Campylobacter Not Detected (NotDetected); Clostridium Difficile A/B, PCR Not Detected (NotDetected); Cryptosporidium Not Detected (NotDetected); Cyclospora Cayetanesis Not Detected (NotDetected); Entamoeba histolytica Not Detected (NotDetected); Enteroaggregative E coli Not Detected (NotDetected); Enteropathogenic E coli Not Detected (NotDetected); Enterotoxigenic E coli Not Detected (NotDetected); Giardia lamblia Not Detected (NotDetected); Norovirus Not Detected (NotDetected); Plesimonas Shigalloides, PCR Not Detected (NotDetected); Rotavirus A Not Detected (NotDetected); Salmonella, PCR Not Detected (NotDetected); Sapovirus Not Detected (NotDetected); Shigella Enterovasive E coli Not Detected (NotDetected); Vibrio Cholerae Not Detected (NotDetected); Vibrio, PCR Not Detected (NotDetected); Yersinia Entercolitica, PCR Not Detected (NotDetected)
[2024-04-30 21:16] LABS: Occult Blood,Stool Positive (Negative)
--- NOTE | 2024-04-30 21:50 | PC.NURSE ---
called gatehouse attendant for admission
[2024-04-30] MEDS: PIPERACILLIN/TAZO 3.375 GM in 0.9 % SODIUM CHLORIDE 50 ML IV (21:54)
--- NOTE | 2024-04-30 22:06 | PC.NURSE ---
Report called to JOSE E Day
[2024-04-30 22:27] VITALS: BP 132/74; PULSE 62; RESP 18; TEMP 36.9; O2SAT 98
--- NOTE | 2024-04-30 22:30 | PC.NURSE ---
Patient arrived to floor via wheelchair from ED at 22:29.
[2024-04-30 22:35] VITALS: BP 145/84; PULSE 78; RESP 17; TEMP 36.9; O2SAT 100; BMI 30.9
[2024-04-30 22:42] LABS: Shiga-like toxin E coli Detected (NotDetected)
--- NOTE | 2024-04-30 23:09 | EXP.HP ---
History of Present Illness *Admission Date: 04/30/24 *Reason for visit:: Colitis, appendicitis *History of present illness: Melissa Chapin is a 49-year-old female without significant past medical history who presents emergency room tonight with complaints of abdominal pain. 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 Reports that her abdominal pain has actually been ongoing since about Wednesday. She was doing some work outside in the barn and thought she got too hot. States that she is just had intermittent cramping with bouts of sharp pain over the last several days. Has had diarrhea since Wednesday. Noted some streaks of blood in her stool today. Denies any fever. Most of her pain is in her lower abdomen. No abdominal surgeries noted in the past. Denies any cough, chest pain, shortness of breath. No focal neurodeficits noted. Does not take any blood thinners. Denies tobacco use, alcohol use, illicit drug use. Lab work in the ER showed elevated white count of 12.9 thousand, CRP slightly elevated at 10.4. UA was noninfectious. Stool occult was noted to be positive. CT of the abdomen pelvis show periappendiceal stranding consistent with acute appendicitis as well as colitis. General surgery was consulted, recommended patient be placed on antibiotics, kept n.p.o. after midnight, and they will see the patient in consult for possible invention tomorrow. Patient was started on Zosyn and Flagyl. She will be made to the hospitalist service for colitis and appendicitis. [facility] Disclaimer: The information contained in this section may have been updated after the patient was seen, as this information can be updated by other users. Medical History Squamous cell carcinoma Family History (Updated 11/07/18 @ 08:24 by LEE Jaeger) Other Squamous cell carcinoma Social History (Updated 04/30/24 @ 22:42 by Barb Gardiner RN) Smoking Status: Never smoker alcohol intake: never substance use type: denies use current occupational status: employed Travel in the last 8 weeks: None household members: family Review of Systems Constitutional Constitutional: Reports system reviewed and no additional complaints, except as documented *Cardiovascular Cardiovascular: Reports system reviewed and no additional complaints, except as documented *Respiratory Respiratory: Reports system reviewed and no additional complaints, except as documented *Gastrointestinal Gastrointestinal: Reports abdominal pain and Reports diarrhea *Genitourinary Genitourinary: Reports system reviewed and no additional complaints, except as documented *Musculoskeletal Musculoskeletal: Reports system reviewed and no additional complaints, except as documented *Neurologic Neurologic: Reports system reviewed and no additional complaints, except as documented Meds Home Medications and Allergies New Prescriptions to Start Prescriptions: Allergies Allergy/AdvReac Type Severity Reaction Status Date / Time No Known Allergies Allergy Unverified 09/12/21 11:34 Exam Data for Last 24 hours Vital signs and Labs for Last 24 Hours: Temp Pulse Resp BP Pulse Ox O2 Del Method 98.4 F 62 18 132/74 96 Room Air 04/30/24 22:27 04/30/24 22:27 04/30/24 22:27 04/30/24 22:27 04/30/24 17:32 04/30/24 22:27 Laboratory Results - last 24 hr 04/30/24 18:22: WBC 12.9 H, RBC 4.29, Hgb 13.6, Hct 41.5, MCV 96.8, MCH 31.8 H, MCHC 32.8, RDW 12.9, Plt Count 394, MPV 7.6, Neut % (Auto) 74.6, Lymph % (Auto) 17.6, [place] % (Auto) 5.5, Eos % (Auto) 1.7, Baso % (Auto) 0.5, Neut # (Auto) 9.7 H, Lymph # (Auto) 2.3, [place] # (Auto) 0.7, Eos # (Auto) 0.2, Baso # (Auto) 0.1, Sodium 138, Potassium 3.7, Chloride 106, Carbon Dioxide 28, Anion Gap 7.7, BUN 6 L, Creatinine 0.60, Estimated Creat Clear 160, Estimated GFR 107, Est GFR ( Amer) 129, Glucose 95, Calcium 9.1, Magnesium 1.9, Total Bilirubin 0.9, AST 29, ALT 24, Alkaline Phosphatase 51, C-Reactive Protein 10.4 H, Total Protein 7.4, Albumin 4.2, Globulin 3.2, Albumin/Globulin Ratio 1.3, Lipase 61, Serum HCG, Qual Negative 04/30/24 19:04: Urine Color Straw, Urine Appearance Clear, Urine pH 6.0, Ur Specific [place] <= 1.005, Urine Protein Negative, Urine Glucose (UA) Negative, Urine Ketones Negative, Urine Blood Trace-i, Urine Nitrate Negative, Urine Bilirubin Negative, Urine Urobilinogen 0.2, Ur Leukocyte Esterase Negative, Urine RBC Occasional, Urine WBC Occasional, Ur Squamous Epith Cells 3-5, Urine Bacteria Trace 04/30/24 20:57: Stool Occult Blood Positive A, Stl Aeromonas (PCR) Not detected, Stl C. cayetanensis PCR Not detected, Stool Rotavirus (PCR) Not detected, Stl Adenov F 40/41 PCR Not detected, Stool Astrovirus (PCR) Not detected, Stool Campylobacter PCR Not detected, Stl C.difficile Tox PCR Not detected, Stool Cryptosporidium PCR Not detected, Stl E.coli Shiga Tox PCR Detected A, Stool E coli O157 PCR Not detected, Stl Enterotoxigenic E PCR Not detected, Stool EPEC (PCR) Not detected, Stool EAEC (PCR) Not detected, Stl E. histolytica PCR Not detected, Stool Giardia [place]lia PCR Not detected, Stool Salmonella PCR Not detected, Stool Sapovirus (PCR) Not detected, Stl P. shigelloides PCR Not detected, Stl Shigella/EIEC PCR Not detected, St Y.enterocolitica PCR Not detected, Stool Vibrio (PCR) Not detected, Stl Vibrio cholerae PCR Not detected, Stl Norovirus GI/GII PCR Not detected I & O for Last 24 hours: Intake & Output 04/27/24 04/28/24 04/29/24 04/30/24 23:59 23:59 23:59 23:59 Weight 88.451 kg *Routine HEENT Exam Head: Present normocephalic and atraumatic Eye: Present EOMI and PERRL ENT: Present mucous membranes moist *Routine Neck Exam Neck: Present supple and full ROM *Routine Respiratory Exam Respiratory: Present CTA bilaterally *Routine Cardiovascular Exam Cardiovascular: Present RRR, Normal S1 and Normal S2 *Routine Abdominal Exam Abdominal: Present soft, normoactive bowel sounds and tenderness Comments: Generalized tenderness to palpation throughout all quadrants without rebound, guarding, peritoneal signs *Routine Rectal Exam Rectal:: deferred *Routine Genitalia Exam Genitalia:: deferred *Routine Extremities Exam Extremities: Present pulses intact and normal capillary refill *Routine Skin Exam Skin: Present intact *Routine Neurological Exam Neurological: Present alert and oriented X3 Assessment and Plan *Assessment and plan (1) Appendicitis: Status: Acute Qualifiers: Appendicitis type: acute appendicitis Category: Medical Code(s): K37 - Unspecified appendicitis (2) Colitis: Status: Acute Category: Medical Code(s): K52.9 - Noninfective gastroenteritis and colitis, unspecified Plan Assessment: This is a 49-year-old female who is a admitted for colitis as well as appendicitis. On my exam, patient is lying in bed in no acute distress. Reports her abdominal pain is improved. No other complaints. Plan: Admit to inpatient-MedSurg Colitis Appendicitis Positive occult stool likely secondary to above -Continue Flagyl and Zosyn -N.p.o. -Pain management as needed -Will give some IV fluids overnight as patient has had multiple bouts of diarrhea -Antiemetics as needed -Consult general surgery -Monitor abdomen closely CODE STATUS: Full code DVT prophylaxis: SCDs Surrogate decision maker: Wayne [phone] Skin: Low risk
[2024-04-30] MEDS: METRONIDAZ/SOD CHL 500 MG/100 ML PIGGYBACK 100 MG IV (23:17)
[2024-04-30] MEDS: LACTATED RINGERS 1000ML 1,000 ML 100 ML IV (23:17)
[2024-04-30] MEDS: HYDROCODONE/APAP 5/325 MG TABLET 1 TAB PO (23:17)
[2024-04-30 23:21] LABS: Lactic Acid 0.8 mmol/L (0.7-2.1)
[2024-05-01 04:00] VITALS: BP 133/68; PULSE 78; RESP 17; TEMP 36.8; O2SAT 95; BMI 30.9
[2024-05-01] MEDS: PIPERCILLIN/TAZO 3.375 GM in 0.9 % SODIUM CHLORIDE 50 ML IV (06:24)
--- NOTE | 2024-05-01 06:27 | PC.NURSE ---
Pt has complained of rlq abd pain 1x during shift. medicated per dec. pt stated relief. pt ambulating to br independently. at bedside. call light within reach.
[2024-05-01 07:00] LABS: Alanine Aminotransferase 20 U/L (12-78); Albumin Level 3.6 g/dl (3.5-5.0); Albumin/Globulin Ratio 1.4 (1.1-1.8); Alkaline Phosphatase 54 U/L (38-126); Anion Gap 7.3 mEq/L (5-15); Aspartate Amino Transferase 23 U/L (14-36); Bilirubin,Total 0.9 mg/dl (0.2-1.3); Blood Urea Nitrogen 5 mg/dl (7-17); Calcium 8.7 mg/dl (8.4-10.2); Carbon Dioxide 28 mmol/L (22.0-30.0); Chloride 106 mmol/L (98-107); Creatinine Clearance Estimated 162 mL/min (50-200); Estimated Glomerular Filt Rate 107 ml/min (>60); GFR (African American) 129 ML/MIN (>60); Globulin 2.6 g/dL (1.3-3.2); Glucose 89 mg/dl (74-100); Potassium 3.3 mmoL/L (3.5-5.1); Sodium 138 mmol/L (136-145); Total Protein,Serum 6.2 g/dl (6.3-8.2)
[2024-05-01 07:02] LABS: Basophils # 0.1 K/mm3 (0-0.2); Basophils % 0.6 % (0.1-2.0); Eosinophils # 0.2 K/mm3 (0.0-0.4); Hemoglobin 12.7 g/dL (12.2-16.2); Lymphocytes # 2.5 K/mm3 (0.7-4.5); Lymphocytes % 21.9 % (10-50); Mean Corpuscular HGB Conc 31.6 g/dL (31.8-35.4); Mean Corpuscular Hemoglobin 30.4 pg (27.0-31.2); Monocytes # 0.6 K/mm3 (0.1-1.0); Monocytes % 5.7 % (1.7-9.3); Neutrophils # 7.9 K/mm3 (1.8-7.8); Neutrophils % 69.8 % (37.0-80.0); Platelet Count 417 K/mm3 (142-424); Red Blood Count 4.16 M/mm3 (4.20-5.40); White Blood Count 11.3 K/mm3 (4.8-10.8)
--- NOTE | 2024-05-01 07:04 | P.CONS_ITS ---
History of Present Illness *Admission Date: 04/30/24 *Reason for visit:: Colitis, appendicitis *History of present illness: Melissa Chapin is a 49-year-old female without significant past medical history who presents emergency room tonight with complaints of abdominal pain. 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 Reports that her abdominal pain has actually been ongoing since about Wednesday. She was doing some work outside in the barn and thought she got too hot. States that she is just had intermittent cramping with bouts of sharp pain over the last several days. Has had diarrhea since Wednesday. Noted some streaks of blood in her stool today. Denies any fever. Most of her pain is in her lower abdomen. No abdominal surgeries noted in the past. Lab work in the ER showed elevated white count of 12.9 thousand, CRP slightly elevated at 10.4. UA was noninfectious. Stool occult was noted to be positive. She underwent CT scan of the abdomen and pelvis in the emergency department which revealed the appendix is hyperenhancing with periappendiceal inflammatory changes consistent with acute appendicitis. Severe wall thickening extending from the distal transverse colon to the mid descending colon with extensive surrounding fat stranding appears consistent with colitis. Mild ascites. She was admitted for inpatient management for colitis and apparent acute appendicitis based on the CT reading. Since admission her stool occult is positive for blood. Stool is positive for E. coli Shiga toxin. [facility] Disclaimer: The information contained in this section may have been updated after the patient was seen, as this information can be updated by other users. Medical History Squamous cell carcinoma Family History (Updated 11/07/18 @ 08:24 by LEE Jaeger) Squamous cell carcinoma Social History (Updated 04/30/24 @ 22:42 by Barb Gardiner RN) Smoking Status: Never smoker alcohol intake: never substance use type: denies use current occupational status: employed Travel in the last 8 weeks: None household members: family Review of Systems *Neurologic Neurologic: Reports system reviewed and no additional complaints, except as documented Meds Home Medications and Allergies New Prescriptions to Start Prescriptions: Allergies Allergy/AdvReac Type Severity Reaction Status Date / Time No Known Allergies Allergy Unverified 09/12/21 11:34 Exam (Inpt) Vital signs and Labs for Last 24 Hours: Temp Pulse Resp BP Pulse Ox O2 Del Method 98.3 F 78 17 133/68 95 Room Air 05/01/24 04:00 05/01/24 04:00 05/01/24 04:00 05/01/24 04:00 05/01/24 04:00 05/01/24 06:54 Laboratory Results - last 24 hr 04/30/24 18:22: WBC 12.9 H, RBC 4.29, Hgb 13.6, Hct 41.5, MCV 96.8, MCH 31.8 H, MCHC 32.8, RDW 12.9, Plt Count 394, MPV 7.6, Neut % (Auto) 74.6, Lymph % (Auto) 17.6, [place] % (Auto) 5.5, Eos % (Auto) 1.7, Baso % (Auto) 0.5, Neut # (Auto) 9.7 H, Lymph # (Auto) 2.3, [place] # (Auto) 0.7, Eos # (Auto) 0.2, Baso # (Auto) 0.1, Sodium 138, Potassium 3.7, Chloride 106, Carbon Dioxide 28, Anion Gap 7.7, BUN 6 L, Creatinine 0.60, Estimated Creat Clear 160, Estimated GFR 107, Est GFR ( Amer) 129, Glucose 95, Calcium 9.1, Magnesium 1.9, Total Bilirubin 0.9, AST 29, ALT 24, Alkaline Phosphatase 51, C-Reactive Protein 10.4 H, Total Protein 7.4, Albumin 4.2, Globulin 3.2, Albumin/Globulin Ratio 1.3, Lipase 61, Serum HCG, Qual Negative 04/30/24 19:04: Urine Color Straw, Urine Appearance Clear, Urine pH 6.0, Ur Specific [place] <= 1.005, Urine Protein Negative, Urine Glucose (UA) Negative, Urine Ketones Negative, Urine Blood Trace-i, Urine Nitrate Negative, Urine Bilirubin Negative, Urine Urobilinogen 0.2, Ur Leukocyte Esterase Negative, Urine RBC Occasional, Urine WBC Occasional, Ur Squamous Epith Cells 3-5, Urine Bacteria Trace 04/30/24 20:57: Stool Occult Blood Positive A, Stl Aeromonas (PCR) Not detected, Stl C. cayetanensis PCR Not detected, Stool Rotavirus (PCR) Not detected, Stl Adenov F 40/41 PCR Not detected, Stool Astrovirus (PCR) Not detected, Stool Campylobacter PCR Not detected, Stl C.difficile Tox PCR Not detected, Stool Cryptosporidium PCR Not detected, Stl E.coli Shiga Tox PCR Detected A, Stool E coli O157 PCR Not detected, Stl Enterotoxigenic E PCR Not detected, Stool EPEC (PCR) Not detected, Stool EAEC (PCR) Not detected, Stl E. histolytica PCR Not detected, Stool Giardia Lamblia PCR Not detected, Stool Salmonella PCR Not detected, Stool Sapovirus (PCR) Not detected, Stl P. shigelloides PCR Not detected, Stl Shigella/EIEC PCR Not detected, St Y.enterocolitica PCR Not detected, Stool Vibrio (PCR) Not detected, Stl Vibrio cholerae PCR Not detected, Stl Norovirus GI/GII PCR Not detected 04/30/24 23:00: Lactate 0.8 I & O for Labs for Last 24 Hours: Intake & Output 04/28/24 04/29/24 04/30/24 05/01/24 11:59 11:59 11:59 11:59 Intake Total 729 / 729 Output Total 0 / 0 Balance 729 / 729 Weight 197 lb 7.982 oz Constitutional: no acute distress Head: Present normocephalic GI: Present soft and tenderness Comments:: She has some tenderness in the left upper quadrant. Rectal (female): Present deferred (female): Present deferred Results Labs 05/01/24 05:46 05/01/24 05:46 Labs: Laboratory Results - last 24 hr 04/30/24 18:22: WBC 12.9 H, RBC 4.29, Hgb 13.6, Hct 41.5, MCV 96.8, MCH 31.8 H, MCHC 32.8, RDW 12.9, Plt Count 394, MPV 7.6, Neut % (Auto) 74.6, Lymph % (Auto) 17.6, [place] % (Auto) 5.5, Eos % (Auto) 1.7, Baso % (Auto) 0.5, Neut # (Auto) 9.7 H, Lymph # (Auto) 2.3, [place] # (Auto) 0.7, Eos # (Auto) 0.2, Baso # (Auto) 0.1, Sodium 138, Potassium 3.7, Chloride 106, Carbon Dioxide 28, Anion Gap 7.7, BUN 6 L, Creatinine 0.60, Estimated Creat Clear 160, Estimated GFR 107, Est GFR ( Amer) 129, Glucose 95, Calcium 9.1, Magnesium 1.9, Total Bilirubin 0.9, AST 29, ALT 24, Alkaline Phosphatase 51, C-Reactive Protein 10.4 H, Total Protein 7.4, Albumin 4.2, Globulin 3.2, Albumin/Globulin Ratio 1.3, Lipase 61, Serum HCG, Qual Negative 04/30/24 19:04: Urine Color Straw, Urine Appearance Clear, Urine pH 6.0, Ur Specific [place] <= 1.005, Urine Protein Negative, Urine Glucose (UA) Negative, Urine Ketones Negative, Urine Blood Trace-i, Urine Nitrate Negative, Urine Bilirubin Negative, Urine Urobilinogen 0.2, Ur Leukocyte Esterase Negative, Urine RBC Occasional, Urine WBC Occasional, Ur Squamous Epith Cells 3-5, Urine Bacteria Trace 04/30/24 20:57: Stool Occult Blood Positive A, Stl Aeromonas (PCR) Not detected, Stl C. cayetanensis PCR Not detected, Stool Rotavirus (PCR) Not detected, Stl Adenov F 40/41 PCR Not detected, Stool Astrovirus (PCR) Not detected, Stool Campylobacter PCR Not detected, Stl C.difficile Tox PCR Not detected, Stool Cryptosporidium PCR Not detected, Stl E.coli Shiga Tox PCR Detected A, Stool E coli O157 PCR Not detected, Stl Enterotoxigenic E PCR Not detected, Stool EPEC (PCR) Not detected, Stool EAEC (PCR) Not detected, Stl E. histolytica PCR Not detected, Stool Giardia Lamblia PCR Not detected, Stool Salmonella PCR Not detected, Stool Sapovirus (PCR) Not detected, Stl P. shigelloides PCR Not detected, Stl Shigella/EIEC PCR Not detected, St Y.enterocolitica PCR Not detected, Stool Vibrio (PCR) Not detected, Stl Vibrio cholerae PCR Not detected, Stl Norovirus GI/GII PCR Not detected 04/30/24 23:00: Lactate 0.8 Assessment and Plan *Assessment and plan (1) Colitis: Status: Acute Category: Medical Code(s): K52.9 - Noninfective gastroenteritis and colitis, unspecified Plan Patient's findings of hyperenhancing appendix on CT scan is likely secondary to her significant E. coli infectious colitis. Would not pursue surgical intervention therefore.
[2024-05-01 07:10] LABS: INR 0.98 (0.9-1.1)
[2024-05-01 08:00] VITALS: BP 137/74; PULSE 75; RESP 18; TEMP 36.7; O2SAT 99
--- NOTE | 2024-05-01 09:19 | P.PN_ITS ---
Subjective *Date: 05/01/24 *Time: 15:34 Interval history: The patient is seen and examined at bedside today. She is accompanied by her . I am accompanied by her nurse Nubia. She reports that she is feeling better with diminished abdominal pain. She reports no prior history of c olonoscopy. 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 She normally follows with Dr. Bryan and uses a local [facility] pharmacy. Her admission lactic acid is negative. Her potassium is 3.3 with normal sodium BUN and creatinine. Her LFTs are normal. Her CBC identifies WBC 11.3 with hemoglobin 12.7 platelet count 417. Nursing staff report that she remains afebrile with stable vital signs and saturating appropriately on room air. Exam Data for Last 24 hours Vital signs and Labs for Last 24 Hours: Temp Pulse Resp BP Pulse Ox O2 Del Method 98.1 F 75 18 137/74 99 Room Air 05/01/24 08:00 05/01/24 08:00 05/01/24 08:00 05/01/24 08:00 05/01/24 08:00 05/01/24 08:00 Laboratory Results - last 24 hr 04/30/24 18:22: WBC 12.9 H, RBC 4.29, Hgb 13.6, Hct 41.5, MCV 96.8, MCH 31.8 H, MCHC 32.8, RDW 12.9, Plt Count 394, MPV 7.6, Neut % (Auto) 74.6, Lymph % (Auto) 17.6, [place] % (Auto) 5.5, Eos % (Auto) 1.7, Baso % (Auto) 0.5, Neut # (Auto) 9.7 H, Lymph # (Auto) 2.3, [place] # (Auto) 0.7, Eos # (Auto) 0.2, Baso # (Auto) 0.1, Sodium 138, Potassium 3.7, Chloride 106, Carbon Dioxide 28, Anion Gap 7.7, BUN 6 L, Creatinine 0.60, Estimated Creat Clear 160, Estimated GFR 107, Est GFR ( Amer) 129, Glucose 95, Calcium 9.1, Magnesium 1.9, Total Bilirubin 0.9, AST 29, ALT 24, Alkaline Phosphatase 51, C-Reactive Protein 10.4 H, Total Protein 7.4, Albumin 4.2, Globulin 3.2, Albumin/Globulin Ratio 1.3, Lipase 61, Serum HCG, Qual Negative 04/30/24 19:04: Urine Color Straw, Urine Appearance Clear, Urine pH 6.0, Ur Specific [place] <= 1.005, Urine Protein Negative, Urine Glucose (UA) Negative, Urine Ketones Negative, Urine Blood Trace-i, Urine Nitrate Negative, Urine Bilirubin Negative, Urine Urobilinogen 0.2, Ur Leukocyte Esterase Negative, Urine RBC Occasional, Urine WBC Occasional, Ur Squamous Epith Cells 3-5, Urine Bacteria Trace 04/30/24 20:57: Stool Occult Blood Positive A, Stl Aeromonas (PCR) Not detected, Stl C. cayetanensis PCR Not detected, Stool Rotavirus (PCR) Not detected, Stl Adenov F 40/41 PCR Not detected, Stool Astrovirus (PCR) Not detected, Stool Campylobacter PCR Not detected, Stl C.difficile Tox PCR Not detected, Stool Cryptosporidium PCR Not detected, Stl E.coli Shiga Tox PCR Detected A, Stool E coli O157 PCR Not detected, Stl Enterotoxigenic E PCR Not detected, Stool EPEC (PCR) Not detected, Stool EAEC (PCR) Not detected, Stl E. histolytica PCR Not detected, Stool Giardia Lamblia PCR Not detected, Stool Salmonella PCR Not detected, Stool Sapovirus (PCR) Not detected, Stl P. shigelloides PCR Not detected, Stl Shigella/EIEC PCR Not detected, St Y.enterocolitica PCR Not detected, Stool Vibrio (PCR) Not detected, Stl Vibrio cholerae PCR Not detected, Stl Norovirus GI/GII PCR Not detected 04/30/24 23:00: Lactate 0.8 05/01/24 05:46: WBC 11.3 H, RBC 4.16 L, Hgb 12.7, Hct 40.0, MCV 96.0, MCH 30.4, MCHC 31.6 L, RDW 13.0, Plt Count 417, MPV 8.0, Neut % (Auto) 69.8, Lymph % (Auto) 21.9, [place] % (Auto) 5.7, Eos % (Auto) 2.0, Baso % (Auto) 0.6, Neut # (Auto) 7.9 H, Lymph # (Auto) 2.5, [place] # (Auto) 0.6, Eos # (Auto) 0.2, Baso # (Auto) 0.1, PT 11.0, INR 0.98, Sodium 138, Potassium 3.3 L, Chloride 106, Carbon Dioxide 28, Anion Gap 7.3, BUN 5 L, Creatinine 0.60, Estimated Creat Clear 162, Estimated GFR 107, Est GFR ( Amer) 129, Glucose 89, Calcium 8.7, Total Bilirubin 0.9, AST 23, ALT 20, Alkaline Phosphatase 54, Total Protein 6.2 L, Albumin 3.6 D, Globulin 2.6, Albumin/Globulin Ratio 1.4 I & O for Last 24 hours: Intake & Output 04/28/24 04/29/24 04/30/24 05/01/24 23:59 23:59 23:59 23:59 Intake Total 729 / 729 Output Total 0 / 0 Balance 729 / 729 Weight 89.584 kg 89.584 kg Constitutional Constitutional: no acute distress and cooperative *Routine HEENT Exam Head: Present normocephalic Eye: Present EOMI ENT: Present mucous membranes moist *Routine Neck Exam Neck: Present supple; Absent JVD or lymphadenopathy *Routine Respiratory Exam Respiratory: Present CTA bilaterally, normal respiratory effort and symmetric chest movement *Routine Cardiovascular Exam Cardiovascular: Present RRR *Routine Abdominal Exam Abdominal: Present soft, normoactive bowel sounds and tenderness; Absent distended or rebound *Routine Extremities Exam Extremities: Present full ROM and normal capillary refill; Absent edema *Routine Skin Exam Skin: Present warm and normal turgor; Absent rash *Routine Neurological Exam Neurological: Present alert, oriented X3, moving all extremities, vision grossly intact, hearing grossly intact and normal speech; Absent CN II-XII intact or sensory deficit Routine Psychiatric Exam Psychiatric: Present normal affect, normal thought process, cooperative, good insight and good judgment Assessment and Plan *Assessment and plan (1) Appendicitis: Status: Acute Qualifiers: Appendicitis type: acute appendicitis Category: Medical Code(s): K37 - Unspecified appendicitis (2) Colitis: Status: Acute Category: Medical Code(s): K52.9 - Noninfective gastroenteritis and colitis, unspecified Plan This is a 49-year-old female who is a admitted for colitis with no prior history of abdominal concerns. She reports a cousin with inflammatory bowel disease. She is colonoscopy na?ve. I have discussed the case with general surgery (Dr. Fatima) who recommends supportive therapy at present time. Colitis IV fluid resuscitation GI PCR panel positive for Shigella IV Rocephin 2 g daily for x 5 days Transition to oral bioequivalent on discharge General surgery consult noted Antiemetic therapy Diet as tolerated Trending labs and inflammatory markers Parenterally administered controlled substance for comfort care Outpatient follow-up with gastroenterology discussed CODE STATUS: Full code DVT prophylaxis: SCDs Surrogate decision maker: Wayne [phone] Skin: Low risk The patient is hospitalized day 1 with above diagnoses. We appreciate gis consultant evaluation and ongoing recommendations. Case management is assisting with discharge needs. Barriers to discharge currently include assessing stability of symptomatology and assessing follow-up inflammatory markers. Expected day of discharge over the next day or 2.
[2024-05-01] MEDS: 0.9 % SODIUM CHLORIDE 1000ML 1,000 ML 125 ML IV ×2 (09:49→18:12)
[2024-05-01] MEDS: CEFTRIAXONE SODIUM 2 GM in 0.9 % SODIUM CHLORIDE 100 ML IV (09:49)
[2024-05-01] MEDS: POTASSIUM CHLORIDE 20MEQ TAB 40 MEQ PO (09:50)
[2024-05-01] MEDS: ACETAMINOPHEN 500MG TAB 1000 MG PO (10:20)
[2024-05-01 12:00] VITALS: BP 112/61; PULSE 79; RESP 18; TEMP 37.3; O2SAT 99
[2024-05-01 16:00] VITALS: BP 154/92; PULSE 75; RESP 18; TEMP 36.9; O2SAT 100
--- NOTE | 2024-05-01 16:10 | PC.NURSE ---
A&OX4. PT HAS TOLERATED RA WELL THROUGHOUT SHIFT. RESPIRATIONS REGULAR AND UNLABORED. LUNG SOUNDS CLEAR THROUGHOUT. SOFT AND TENDER ABDOMEN. NO REPORTS OF BM THUS FAR. VOIDS PER BATHROOM INDEPENDENTLY. HAND CREATIVE WRITER EQUAL. +2 PULSES NOTED THROUGHOUT. NO EDEMA NOTED. SPOUSE DID VISIT THIS SHIFT. NO QUESTIONS OR CONCERNS VOICED. PT HAS REPORTED PAIN ONCE THIS SHIFT THUS FAR AND RECEIVED PAIN MEDS ON DEC. ON REASSESSMENT, PT STATED PAIN WAS DECREASED AND TOLERABLE. CALL LIGHT WITHIN REACH. BED IN LOWEST POSITION.
[2024-05-01 20:00] VITALS: BP 112/69; PULSE 78; RESP 18; TEMP 36.6; O2SAT 99
[2024-05-02] VITALS: BP 101/47; PULSE 77; RESP 16; TEMP 36.7; O2SAT 99
[2024-05-02 04:00] VITALS: BP 98/61; PULSE 74; RESP 16; TEMP 36.7; O2SAT 96; BMI 30.6
[2024-05-02 06:05] LABS: Basophils # 0.1 K/mm3 (0-0.2); Basophils % 0.9 % (0.1-2.0); Eosinophils # 0.3 K/mm3 (0.0-0.4); Eosinophils % 2.8 % (0.1-12.0); Hematocrit 35.8 % (37.0-47.0); Hemoglobin 11.8 g/dL (12.2-16.2); Lymphocytes # 2.4 K/mm3 (0.7-4.5); Lymphocytes % 27.2 % (10-50); Mean Corpuscular Hemoglobin 31.5 pg (27.0-31.2); Mean Corpuscular Volume 95.5 fl (81-99); Mean Platelet Volume 7.7 fl (7.4-10.4); Monocytes # 0.5 K/mm3 (0.1-1.0); Monocytes % 5.5 % (1.7-9.3); Neutrophils # 5.7 K/mm3 (1.8-7.8); Neutrophils % 63.7 % (37.0-80.0); Platelet Count 386 K/mm3 (142-424); Red Blood Count 3.74 M/mm3 (4.20-5.40); Red Cell Distribution Width 13.1 % (11.5-17.5); White Blood Count 8.9 K/mm3 (4.8-10.8)
[2024-05-02 06:09] LABS: Anion Gap 4.6 mEq/L (5-15); Blood Urea Nitrogen 5 mg/dl (7-17); Calcium 8.6 mg/dl (8.4-10.2); Carbon Dioxide 28 mmol/L (22.0-30.0); Chloride 109 mmol/L (98-107); Creatinine Clearance Estimated 160 mL/min (50-200); Estimated Glomerular Filt Rate 107 ml/min (>60); GFR (African American) 129 ML/MIN (>60); Glucose 88 mg/dl (74-100); Potassium 3.6 mmoL/L (3.5-5.1); Sodium 138 mmol/L (136-145)
[2024-05-02 06:15] LABS: C-Reactive Protein 21.5 mg/L (0-4)
[2024-05-02 06:31] LABS: Procalcitonin 0.043 ng/mL (0.0-2.0)
[2024-05-02 08:00] VITALS: BP 118/72; PULSE 71; RESP 18; TEMP 36.6; O2SAT 100
[2024-05-02] MEDS: 0.9 % SODIUM CHLORIDE 1000ML 1,000 ML 125 ML IV (09:19)
[2024-05-02] MEDS: CEFTRIAXONE SODIUM 2 GM in 0.9 % SODIUM CHLORIDE 100 ML IV (09:19)
--- NOTE | 2024-05-02 10:10 | EXP.SURG.PN ---
Subjective Patient reports: no new complaints Narrative: Patient feels well with no new complaints. Tolerating liquid diet overnight. Advance to a regular diet. 1 episode of diarrhea yesterday without blood. Still has some tenderness in the left upper quadrant. Exam Data for Last 24 hours Vital signs and Labs for Last 24 Hours: Temp Pulse Resp BP Pulse Ox O2 Del Method 98.1 F 74 16 98/61 L 96 Room Air 05/02/24 04:00 05/02/24 04:00 05/02/24 04:00 05/02/24 04:00 05/02/24 04:00 05/02/24 09:10 Laboratory Results - last 24 hr 05/02/24 05:26: WBC 8.9, RBC 3.74 L, Hgb 11.8 L, Hct 35.8 L, MCV 95.5, MCH 31.5 H, MCHC 33.0, RDW 13.1, Plt Count 386, MPV 7.7, Neut % (Auto) 63.7, Lymph % (Auto) 27.2, [place] % (Auto) 5.5, Eos % (Auto) 2.8, Baso % (Auto) 0.9, Neut # (Auto) 5.7, Lymph # (Auto) 2.4, [place] # (Auto) 0.5, Eos # (Auto) 0.3, Baso # (Auto) 0.1, Sodium 138, Potassium 3.6, Chloride 109 H, Carbon Dioxide 28, Anion Gap 4.6 L, BUN 5 L, Creatinine 0.60, Estimated Creat Clear 160, Estimated GFR 107, Est GFR ( Amer) 129, Glucose 88, Calcium 8.6, C-Reactive Protein 21.5 H D, Procalcitonin 0.043 I & O for Last 24 hours: Intake & Output 04/29/24 04/30/24 05/01/24 05/02/24 11:59 11:59 11:59 11:59 Intake Total 729 / 729 2284 / 2284 Output Total 300 / 300 0 / 0 Balance 429 / 429 2284 / 2284 Weight 197 lb 7.982 oz 195 lb Microbiology Reports for the Last 24 Hours: Microbiology 04/30/24 22:26 Blood Blood Culture - Preliminary NO GROWTH AFTER 24 HOURS 04/30/24 22:26 Blood Blood Culture - Preliminary NO GROWTH AFTER 24 HOURS *Routine Abdominal Exam Abdominal: Present soft Comments: Mild tenderness left upper quadrant. No guarding or rebound. No right lower quadrant tenderness. Progress Note: A&P Assessment and plan (1) Appendicitis: Status: Acute Assessment and plan: Patient does not have appendicitis. Secondary appendiceal inflammation secondary to infectious colitis. (2) Colitis: Status: Acute Assessment and plan: Medical management
--- NOTE | 2024-05-02 11:21 | P.DS_ITS ---
General Admission date:: 04/30/24 Discharge date: 05/02/24 HPI HPI HPI: Melissa Chapin is a 49-year-old female without significant past medical history who presents emergency room tonight with complaints of abdominal pain. 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 Reports that her abdominal pain has actually been ongoing since about Wednesday. She was doing some work outside in the barn and thought she got too hot. States that she is just had intermittent cramping with bouts of sharp pain over the last several days. Has had diarrhea since Wednesday. Noted some streaks of blood in her stool today. Denies any fever. Most of her pain is in her lower abdomen. No abdominal surgeries noted in the past. Lab work in the ER showed elevated white count of 12.9 thousand, CRP slightly elevated at 10.4. UA was noninfectious. Stool occult was noted to be positive. She underwent CT scan of the abdomen and pelvis in the emergency department which revealed the appendix is hyperenhancing with periappendiceal inflammatory changes consistent with acute appendicitis. Severe wall thickening extending from the distal transverse colon to the mid descending colon with extensive surrounding fat stranding appears consistent with colitis. Mild ascites. She was admitted for inpatient management for colitis and apparent acute appendicitis based on the CT reading. Since admission her stool occult is positive for blood. Stool is positive for E. coli Shiga toxin. Hospital Course Hospital Course Hospital Course: Patient admitted with acute abdominal pain, and received rule out appendicitis workup. Patient seen by general surgery, who stated that abdominal discomfort more colitis related versus appendicitis related. Patient monitored during hospitalization, unable to tolerate regular diet. Patient placed on IV antibiotics throughout hospitalization. Patient discharged home on additional 8 days of Augmentin. Patient also advised to follow-up with primary care physician and general surgery on an outpatient basis for further abdominal pain issues. Exam Data for Last 24 hours Vital signs and Labs for Last 24 Hours: Temp Pulse Resp BP Pulse Ox O2 Del Method 97.9 F 71 18 118/72 100 Room Air 05/02/24 08:00 05/02/24 08:00 05/02/24 08:00 05/02/24 08:00 05/02/24 08:00 05/02/24 09:10 Laboratory Results - last 24 hr 05/02/24 05:26: WBC 8.9, RBC 3.74 L, Hgb 11.8 L, Hct 35.8 L, MCV 95.5, MCH 31.5 H, MCHC 33.0, RDW 13.1, Plt Count 386, MPV 7.7, Neut % (Auto) 63.7, Lymph % (Auto) 27.2, [place] % (Auto) 5.5, Eos % (Auto) 2.8, Baso % (Auto) 0.9, Neut # (Auto) 5.7, Lymph # (Auto) 2.4, [place] # (Auto) 0.5, Eos # (Auto) 0.3, Baso # (Auto) 0.1, Sodium 138, Potassium 3.6, Chloride 109 H, Carbon Dioxide 28, Anion Gap 4.6 L, BUN 5 L, Creatinine 0.60, Estimated Creat Clear 160, Estimated GFR 107, Est GFR ( Amer) 129, Glucose 88, Calcium 8.6, C-Reactive Protein 21.5 H D, Procalcitonin 0.043 I & O for Last 24 hours: Intake & Output 04/29/24 04/30/24 05/01/24 05/02/24 23:59 23:59 23:59 23:59 Intake Total 3013 / 3013 210 / 210 Output Total 300 / 300 0 / 0 Balance 2713 / 2713 210 / 210 Weight 89.584 kg 89.584 kg 88.451 kg Microbiology Reports for the Last 24 Hours: Microbiology 04/30/24 22:26 Blood Blood Culture - Preliminary NO GROWTH AFTER 24 HOURS 04/30/24 22:26 Blood Blood Culture - Preliminary NO GROWTH AFTER 24 HOURS Results Data Completed and Pending Labs on day of discharge: Labs from last 24 hours 05/02/24 05:26 WBC 8.9 RBC 3.74 L Hgb 11.8 L Hct 35.8 L MCV 95.5 MCH 31.5 H MCHC 33.0 RDW 13.1 Plt Count 386 MPV 7.7 Neut % (Auto) 63.7 Lymph % (Auto) 27.2 [place] % (Auto) 5.5 Eos % (Auto) 2.8 Baso % (Auto) 0.9 Neut # (Auto) 5.7 Lymph # (Auto) 2.4 [place] # (Auto) 0.5 Eos # (Auto) 0.3 Baso # (Auto) 0.1 Sodium 138 Potassium 3.6 Chloride 109 H Carbon Dioxide 28 Anion Gap 4.6 L BUN 5 L Creatinine 0.60 Estimated Creat Clear 160 Estimated GFR 107 Est GFR ( Amer) 129 Glucose 88 Calcium 8.6 C-Reactive Protein 21.5 H D Procalcitonin 0.043 Preliminary micro results at discharge 04/30/24 22:26 Blood Culture - Preliminary Blood NO GROWTH AFTER 24 HOURS 04/30/24 22:26 Blood Culture - Preliminary Blood NO GROWTH AFTER 24 HOURS Imaging and Cardiology TESTING: Status: final report Additional comments: Exam: CT Abdomen And Pelvis With Contrast Exam date and time: 04/30/2024 8:15 PM Age: 49 years old Clinical indication: Abdominal pain; Localized; Lower; Additional info: Acute abdominal pain TECHNIQUE: Imaging protocol: Computed tomography of the abdomen and pelvis with contrast. Radiation optimization: All CT scans at this facility use at least one of these dose optimization techniques: automated exposure control; mA and/or kV adjustment per patient size (includes targeted exams where dose is matched to clinical indication); or iterative reconstruction. Contrast material: ISOVUE; Contrast volume: 75 ml; Contrast route: IV; COMPARISON: CR HIPCMRT XR hip RT 2-3V w/pelvis 06/03/2018 11:22 AM FINDINGS: Liver: Mild hepatomegaly. No liver lesions. Gallbladder and biliary ducts: Normal. No calcified stones. No ductal dilation. Pancreas: Normal. No ductal dilation. Spleen: Calcified granulomas in the spleen. No splenomegaly. Adrenal glands: Normal. No mass. Kidneys and ureters: Normal. No hydronephrosis. Stomach and bowel: Severe wall thickening extending from the distal transverse colon to the mid descending colon with extensive surrounding fat stranding. No bowel obstruction. Appendix: The appendix is hyperenhancing with periappendiceal inflammatory changes, consistent with acute appendicitis. Intraperitoneal space: Mild ascites. Vasculature: Unremarkable. No abdominal aortic aneurysm. Lymph nodes: Calcified subcarinal lymph node. No adenopathy. Urinary bladder: Unremarkable as visualized. Reproductive: Unremarkable as visualized. Bones/joints: Unremarkable. No acute fracture. Soft tissues: Unremarkable. IMPRESSION: 1. The appendix is hyperenhancing with periappendiceal inflammatory changes, consistent with acute appendicitis. 2. Severe wall thickening extending from the distal transverse colon to the mid descending colon with extensive surrounding fat stranding appears consistent with colitis. 3. Mild ascites. -- Addendum Dictated By: Charles Vieira MD Addendum Signed By: Date/Time: 04/30/242127 Addendum Cosigned By: Date/Time: DD/ /17/2016 PROCEDURE INFORMATION: Exam: CT Abdomen And Pelvis With Contrast Exam date and time: 04/30/2024 8:15 PM Age: 49 years old Clinical indication: Abdominal pain; Localized; Lower; Additional info: Acute abdominal pain TECHNIQUE: Imaging protocol: Computed tomography of the abdomen and pelvis with contrast. Radiation optimization: All CT scans at this facility use at least one of these dose optimization techniques: automated exposure control; mA and/or kV adjustment per patient size (includes targeted exams where dose is matched to clinical indication); or iterative reconstruction. Contrast material: ISOVUE; Contrast volume: 75 ml; Contrast route: IV; COMPARISON: CR HIPCMRT XR hip RT 2-3V w/pelvis 06/03/2018 11:22 AM FINDINGS: Liver: Mild hepatomegaly. No liver lesions. Gallbladder and biliary ducts: Normal. No calcified stones. No ductal dilation. Pancreas: Normal. No ductal dilation. Spleen: Calcified granulomas in the spleen. No splenomegaly. Adrenal glands: Normal. No mass. Kidneys and ureters: Normal. No hydronephrosis. Stomach and bowel: Severe wall thickening extending from the distal transverse colon to the mid descending colon with extensive surrounding fat stranding. No bowel obstruction. Appendix: The appendix is hyperenhancing with periappendiceal inflammatory changes, consistent with acute appendicitis. Intraperitoneal space: Mild ascites. Vasculature: Unremarkable. No abdominal aortic aneurysm. Lymph nodes: Calcified subcarinal lymph node. No adenopathy. Urinary bladder: Unremarkable as visualized. Reproductive: Unremarkable as visualized. Bones/joints: Unremarkable. No acute fracture. Soft tissues: Unremarkable. IMPRESSION: 1. The appendix is hyperenhancing with periappendiceal inflammatory changes, consistent with acute appendicitis. 2. Severe wall thickening extending from the distal transverse colon to the mid descending colon with extensive surrounding fat stranding appears consistent with colitis. 3. Mild ascites. 04/30/2024 done 2225 blood cultures x2:NGTD DS: Diagnosis Discharge Diagnosis (1) Colitis: Start date: 05/02/24 Start time: 11:57 Status: Acute Code(s): K52.9 - Noninfective gastroenteritis and colitis, unspecified Meds Home Medications and Allergies Home Medications Medication Instructions Recorded Confirmed Type amoxicillin 500 mg-potassium 1 tab PO BID #17 tabs 05/02/24 Rx clavulanate 125 mg tablet (Augmentin) oxycodone 5 mg tablet 5 mg PO Q8H PRN pain (scale score 05/02/24 Rx 7-10) #9 tabs New Prescriptions to Start Prescriptions: amoxicillin-pot clavulanate [Augmentin] Gil,Syed oxycodone Gil,[place] Allergies Allergy/AdvReac Type Severity Reaction Status Date / Time No Known Allergies Allergy Unverified 09/12/21 11:34 Discharge Plan Disposition Patient Disposition: Home, Self-Care Condition: Fair Follow up Plan Follow up with: Raúl Fatima MD [Staff Physician] - 05/18/24 10:00 am Joyce Rowland APRN [Nurse Practitioner] - 05/09/24 4:30 am Prescriptions/Medication Reconciliation: New amoxicillin-pot clavulanate [Augmentin] 500-125 mg tablet 1 tab PO BID Qty: 17 0RF oxycodone 5 mg tablet 5 mg PO Q8H PRN (Reason: pain (scale score 7-10)) Qty: 9 0RF Problem Reconciliation Problems Reviewed?: Yes Patient Discharge Instructions ACTIVITY: Continue current activity DIET: regular diet Patient Instructions: DI for Escherichia Coli (E. Coli) Infection, DI for Colitis Print Language: [place] Providers Primary Care Provider: Suresh Sam Provider: Travis Richardson Attending Provider: Travis Richardson
--- NOTE | 2024-05-03 13:16 | CARE MANAGER ---
Called and spoke with patient regarding recent discharge. Patient stated that she is doing well, has started new medication and was aware of scheduled f/u appts. Patient voiced no concerns at time of call.
== END 2024-05-02 12:45 | disposition home or self-care (01) ==
LOC: ER 21:40 → 2ND 22:31
PROVIDERS: Nurse Practitioner Acute Care; Physician Assistant; Admitting Provider Family Medicine; Emergency Provider Emergency Medicine; PCP Internal Medicine Adolescent Medicine; Visit Provider Family Medicine
DX: K52.9 Noninfective gastroenteritis and colitis, unspecified
CPT/HCPCS: 36415; 74177; 80048; 80053; 81001; 82272; 83605; 83690; 83735; 84145; 84703; 85025; 85610; 86140; 87040; 87507; 99221; 99285; G0328; G0378; J0131; J0696; J2543; J7120; Q9967

== ENCOUNTER 2024-05-10 07:25 | Outpatient (CLI) | payer OTHER, SELFPAY ==
[2024-05-10 07:57] LABS: Hematocrit 36.3 % (37.0-47.0); Hemoglobin 11.8 g/dL (12.2-16.2); Mean Corpuscular HGB Conc 32.6 g/dL (31.8-35.4); Mean Corpuscular Hemoglobin 31.7 pg (27.0-31.2); Mean Corpuscular Volume 97.4 fl (81-99); Platelet Count 458 K/mm3 (142-424); Red Blood Count 3.72 M/mm3 (4.20-5.40); White Blood Count 7.4 K/mm3 (4.8-10.8)
[2024-05-10 10:28] LABS: Chol/HDL Ratio 4.9 (1-3.5); Cholesterol 233 mg/dl (140-200); HDL Cholesterol 48 mg/dl (40-60); Triglycerides 84 mg/dl (30-150); VLDL Cholesterol 17 mg/dL (0-40)
[2024-05-10 10:39] LABS: C-Reactive Protein 0.7 mg/L (0-4); Direct LDL Cholesterol 144.65 mg/dL (100-129)
[2024-05-10 11:21] LABS: Vitamin B12 236 pg/mL (239-931)
[2024-05-13 21:12] LABS: Vitamin B6 8.2 ug/L (3.4-65.2)
== END 2024-05-10 23:59 | disposition home or self-care (01) ==
LOC: LAB 07:25
PROVIDERS: PCP Nurse Practitioner Family; Visit Provider Nurse Practitioner Family
DX: E78.2 Mixed hyperlipidemia (principal); E53.8 Deficiency of other specified B group vitamins; D64.9 Anemia, unspecified; A04.4 Other intestinal Escherichia coli infections
CPT/HCPCS: 36415; 80061; 82607; 84207; 85014; 85018; 85048; 85049; 86140

== ENCOUNTER 2024-10-27 07:17 | Outpatient (CLI) | payer OTHER, SELFPAY ==
[2024-10-27 07:38] LABS: Basophils # 0.1 K/mm3 (0-0.2); Basophils % 0.8 % (0.1-2.0); Eosinophils # 0.1 K/mm3 (0.0-0.4); Eosinophils % 1.8 % (0.1-12.0); Hematocrit 37.9 % (37.0-47.0); Hemoglobin 12.3 g/dL (12.2-16.2); Lymphocytes # 2.2 K/mm3 (0.7-4.5); Lymphocytes % 27.4 % (10-50); Mean Corpuscular HGB Conc 32.5 g/dL (31.8-35.4); Mean Corpuscular Volume 92.4 fl (81-99); Mean Platelet Volume 9.2 fl (7.4-10.4); Monocytes # 0.6 K/mm3 (0.1-1.0); Monocytes % 7.4 % (1.7-9.3); Neutrophils % 62.1 % (37.0-80.0); Platelet Count 389 K/mm3 (142-424); Red Cell Distribution Width 12.2 % (11.5-17.5)
[2024-10-27 08:03] LABS: Alanine Aminotransferase 41 U/L (12-78); Albumin Level 4.3 g/dl (3.5-5.0); Albumin/Globulin Ratio 1.9 (1.1-1.8); Alkaline Phosphatase 55 U/L (38-126); Anion Gap 10.3 mEq/L (5-15); Aspartate Amino Transferase 46 U/L (14-36); Blood Urea Nitrogen 12 mg/dl (7-17); Calcium 9.4 mg/dl (8.4-10.2); Carbon Dioxide 27 mmol/L (22.0-30.0); Chloride 104 mmol/L (98-107); Chol/HDL Ratio 3.8 (1-3.5); Cholesterol 200 mg/dl (140-200); Estimated Glomerular Filt Rate 89 ml/min (>60); GFR (African American) 108 ML/MIN (>60); Globulin 2.3 g/dL (1.3-3.2); Glucose 89 mg/dl (74-100); HDL Cholesterol 53 mg/dl (40-60); Potassium 4.3 mmoL/L (3.5-5.1); Sodium 137 mmol/L (136-145); Total Protein,Serum 6.6 g/dl (6.3-8.2); Triglycerides 76 mg/dl (30-150); VLDL Cholesterol 15 mg/dL (0-40)
[2024-10-27 08:14] LABS: Direct LDL Cholesterol 136.07 mg/dL (100-129)
[2024-10-27 08:52] LABS: Vitamin B12 352 pg/mL (239-931)
== END 2024-10-27 23:59 | disposition home or self-care (01) ==
LOC: LAB 07:19
PROVIDERS: PCP Nurse Practitioner Family; Visit Provider Nurse Practitioner Family
DX: E78.49 Other hyperlipidemia (principal); E53.8 Deficiency of other specified B group vitamins
CPT/HCPCS: 36415; 80053; 80061; 82607; 85025

== ENCOUNTER 2024-11-08 16:18 | Outpatient (CLI) | payer OTHER, SELFPAY ==
--- NOTE | 2024-11-08 16:20 | MM_ITS ---
PROCEDURE INFORMATION: Exam: MG Bilateral Screening 3D Mammography Exam date and time: 11/08/2024 4:02 PM Age: 49 years old Clinical indication: Screening mammogram TECHNIQUE: Imaging protocol: Bilateral Screening tomosynthesis and 2D mammography including computer-aided detection (CAD) when performed. COMPARISON: MG MM DIG SCREENING MAMM BI W/CAD 04/01/2023 3:57 PM FINDINGS: MAMMOGRAPHY: Breast composition: There are scattered areas of fibroglandular density. Mass: Stable benign-appearing subcentimeter intramammary lymph nodes are present in the bilateral breasts. No new or morphologically suspicious nodule has developed to suggest malignancy. Architectural distortion: No new or suspicious architectural distortion. Calcifications: No new or suspicious calcifications are present Asymmetric density: No new or suspicious asymmetric density is present Skin thickening: None. Axillary adenopathy: None. IMPRESSION: No mammographic evidence of malignancy. Recommend annual screening mammography unless otherwise clinically indicated. ASSESSMENT: BI-RADS category 2: Benign.
== END 2024-11-08 23:59 | disposition home or self-care (01) ==
LOC: RAD 16:18
PROVIDERS: PCP Nurse Practitioner Family; Visit Provider Nurse Practitioner Family
DX: Z12.31 Encounter for screening mammogram for malignant neoplasm of breast (principal)
CPT/HCPCS: 77063; 77067

== ENCOUNTER 2024-12-04 07:29 | Outpatient (CLI) | payer OTHER, SELFPAY ==
[2024-12-04 08:05] LABS: Alanine Aminotransferase 18 U/L (12-78); Albumin Level 4.6 g/dl (3.5-5.0); Albumin/Globulin Ratio 2.2 (1.1-1.8); Alkaline Phosphatase 53 U/L (38-126); Anion Gap 14.4 mEq/L (5-15); Aspartate Amino Transferase 23 U/L (14-36); Bilirubin,Total 1.5 mg/dl (0.2-1.3); Blood Urea Nitrogen 11 mg/dl (7-17); Calcium 9.3 mg/dl (8.4-10.2); Carbon Dioxide 24 mmol/L (22.0-30.0); Chloride 105 mmol/L (98-107); Estimated Glomerular Filt Rate 89 ml/min (>60); GFR (African American) 108 ML/MIN (>60); Globulin 2.1 g/dL (1.3-3.2); Glucose 104 mg/dl (74-100); Potassium 4.4 mmoL/L (3.5-5.1); Sodium 139 mmol/L (136-145); Total Protein,Serum 6.7 g/dl (6.3-8.2)
== END 2024-12-04 23:59 | disposition home or self-care (01) ==
LOC: LAB 07:30
PROVIDERS: PCP Nurse Practitioner Family; Visit Provider Nurse Practitioner Family
DX: R74.8 Abnormal levels of other serum enzymes (principal)
CPT/HCPCS: 36415; 80053

== ENCOUNTER 2025-01-16 07:27 | Outpatient (CLI) | payer OTHER, SELFPAY ==
[2025-01-16 08:29] LABS: Basophils # 0.1 K/mm3 (0-0.2); Eosinophils # 0.2 K/mm3 (0.0-0.4); Eosinophils % 2.9 % (0.1-12.0); Hematocrit 38.4 % (37.0-47.0); Hemoglobin 12.6 g/dL (12.2-16.2); Lymphocytes # 1.8 K/mm3 (0.7-4.5); Lymphocytes % 28.5 % (10-50); Mean Corpuscular HGB Conc 32.8 g/dL (31.8-35.4); Mean Corpuscular Hemoglobin 30.8 pg (27.0-31.2); Mean Corpuscular Volume 93.9 fl (81-99); Mean Platelet Volume 9.8 fl (7.4-10.4); Monocytes # 0.5 K/mm3 (0.1-1.0); Monocytes % 8.3 % (1.7-9.3); Neutrophils # 3.7 K/mm3 (1.8-7.8); Platelet Count 366 K/mm3 (142-424); Red Blood Count 4.09 M/mm3 (4.20-5.40); Red Cell Distribution Width 11.9 % (11.5-17.5); White Blood Count 6.3 K/mm3 (4.8-10.8)
[2025-01-16 08:59] LABS: Alanine Aminotransferase 168 U/L (12-78); Albumin Level 4.2 g/dl (3.5-5.0); Albumin/Globulin Ratio 1.8 (1.1-1.8); Alkaline Phosphatase 50 U/L (38-126); Anion Gap 7.7 mEq/L (5-15); Aspartate Amino Transferase 87 U/L (14-36); Bilirubin,Total 1.3 mg/dl (0.2-1.3); Blood Urea Nitrogen 17 mg/dl (7-17); Calcium 9.5 mg/dl (8.4-10.2); Carbon Dioxide 27 mmol/L (22.0-30.0); Chloride 107 mmol/L (98-107); Chol/HDL Ratio 4.3 (1-3.5); Cholesterol 217 mg/dl (140-200); Estimated Glomerular Filt Rate 107 ml/min (>60); GFR (African American) 129 ML/MIN (>60); Globulin 2.4 g/dL (1.3-3.2); Glucose 91 mg/dl (74-100); HDL Cholesterol 50 mg/dl (40-60); Potassium 4.7 mmoL/L (3.5-5.1); Sodium 137 mmol/L (136-145); Total Protein,Serum 6.6 g/dl (6.3-8.2); Triglycerides 68 mg/dl (30-150); VLDL Cholesterol 14 mg/dL (0-40)
[2025-01-16 09:11] LABS: Direct LDL Cholesterol 125.55 mg/dL (100-129)
[2025-01-16 09:51] LABS: Vitamin B12 366 pg/mL (239-931)
[2025-01-17 09:16] LABS: Alanine Aminotransferase 175 U/L (12-78); Albumin Level 4.1 g/dl (3.5-5.0); Alkaline Phosphatase 57 U/L (38-126); Aspartate Amino Transferase 87 U/L (14-36); Bilirubin,Direct 0.3 mg/dl (0.0-0.4); Bilirubin,Indirect 0.9 mg/dL (0.0-0.9); Bilirubin,Total 1.2 mg/dl (0.2-1.3); Bilirubin,Unconjugated 0.9 mg/dL (0.0-1.1); Total Protein,Serum 6.5 g/dl (6.3-8.2)
== END 2025-01-16 23:59 | disposition home or self-care (01) ==
PROVIDERS: PCP Nurse Practitioner Family; Visit Provider Nurse Practitioner Adult Health
DX: E78.2 Mixed hyperlipidemia (principal); R74.8 Abnormal levels of other serum enzymes; Z86.39 Personal history of other endocrine, nutritional and metabolic disease
CPT/HCPCS: 36415; 80053; 80061; 80076; 82607; 85025

== ENCOUNTER 2025-01-18 10:03 | Outpatient (CLI) | payer OTHER, SELFPAY ==
[2025-01-19 05:08] LABS: HBsAg Screen Negative (Negative); HCV Ab Non Reactive (Non Reactive); Hep A Ab, IGM Negative (Negative); Hep B Core Ab, IgM Negative (Negative)
== END 2025-01-18 23:59 | disposition home or self-care (01) ==
LOC: LAB 10:04
PROVIDERS: PCP Internal Medicine Adolescent Medicine; Visit Provider Nurse Practitioner Family
DX: R74.8 Abnormal levels of other serum enzymes (principal)
CPT/HCPCS: 36415; 80074; 86803

== ENCOUNTER 2025-01-19 07:38 | Outpatient (CLI) | payer OTHER, SELFPAY ==
--- NOTE | 2025-01-19 07:41 | US_ITS ---
FINAL REPORT CLINICAL HISTORY: ELEVATED ENZYMES COMPARISON: None FINDINGS: Sonographic images of the right upper quadrant were obtained. The pancreas is partially obscured.The liver has an unremarkable appearance.The gallbladder appears normal without evidence of gallstones.There is no evidence of biliary ductal dilatation.The common duct measures 5 mm. Limited images of the right kidney demonstrate a fullness in the right renal pelvis, that may represent an extrarenal pelvis. IMPRESSION: Fullness of the right renal pelvis, that may represent an extrarenal pelvis. Otherwise unremarkable right upper quadrant ultrasound. Reviewed, Interpreted and Dictated by Edmar Paul MD Transcribed by Sonali Sage Authenticated and [facility]
== END 2025-01-19 23:59 | disposition home or self-care (01) ==
LOC: RAD 07:39
PROVIDERS: PCP Internal Medicine Adolescent Medicine; Visit Provider Nurse Practitioner Family
DX: R74.8 Abnormal levels of other serum enzymes (principal)
CPT/HCPCS: 76705

== ENCOUNTER 2025-01-24 13:42 | Outpatient (CLI) | payer OTHER, SELFPAY ==
[2025-01-24 14:42] LABS: Albumin Level 4.4 g/dl (3.5-5.0); Chloride 104 mmol/L (98-107)
[2025-01-24 14:43] LABS: Potassium 4.8 mmoL/L (3.5-5.1); Sodium 139 mmol/L (136-145)
[2025-01-24 14:45] LABS: Alanine Aminotransferase 28 U/L (12-78); Albumin/Globulin Ratio 1.8 (1.1-1.8); Alkaline Phosphatase 66 U/L (38-126); Anion Gap 10.8 mEq/L (5-15); Aspartate Amino Transferase 23 U/L (14-36); Bilirubin,Total 1.2 mg/dl (0.2-1.3); Blood Urea Nitrogen 13 mg/dl (7-17); Carbon Dioxide 29 mmol/L (22.0-30.0); Estimated Glomerular Filt Rate 89 ml/min (>60); GFR (African American) 108 ML/MIN (>60); Globulin 2.4 g/dL (1.3-3.2); Total Protein,Serum 6.8 g/dl (6.3-8.2)
[2025-01-24 14:46] LABS: Calcium 9.4 mg/dl (8.4-10.2); Glucose 81 mg/dl (74-100)
== END 2025-01-24 23:59 | disposition home or self-care (01) ==
LOC: LAB 13:42
PROVIDERS: PCP Internal Medicine Adolescent Medicine; Visit Provider Nurse Practitioner Family
DX: R74.8 Abnormal levels of other serum enzymes (principal)
CPT/HCPCS: 36415; 80053

== ENCOUNTER 2025-02-19 07:15 | Day surgery (SDC) | payer OTHER, SELFPAY ==
[2025-02-19 08:17] VITALS: BP 120/69; PULSE 78; RESP 16; TEMP 36.9; O2SAT 98
[2025-02-19] MEDS: LACTATED RINGERS 1000ML 1,000 ML 50 ML IV (08:26)
[2025-02-19 08:35] LABS: Urine Pregnancy, HCG Qual. Negative (Negative)
--- NOTE | 2025-02-19 08:42 | EXP.ANES.CKL ---
[facility] Disclaimer: The information contained in this section may have been updated after the patient was seen, as this information can be updated by other users. Medical History Migraine Insomnia Squamous cell carcinoma Surgical History History of section Hx of wisdom tooth extraction History of carpal tunnel release of both wrists History of repair of ACL Family History Other No significant family history Squamous cell carcinoma Social History Smoking Status: Former smoker tobacco type: cigarettes packs per day: 1 alcohol intake: never substance use type: denies use current occupational status: employed Travel in the last 8 weeks: None household members: family caffeine: Yes Have you lived/traveled outside [place] in past 30 days?: No Contact w/someone who lives/traveled outside US past 30 days?: No Exposure to someone with infectious disease in past 14 days?: No Do you have a fever (greater than 100.4 F or 38 C)?: No Have you tested positive for COVID-19: No Exposed to someone with COVID-19 in past 14 days?: No Do you have a sore throat?: No Do you have a cough?: No Do you have any weakness?: No Are you experiencing any nausea/vomitting?: No Do you have any diarrhea?: No Are you experiencing any unusual bleeding?: No Do you have any muscle aches/pain?: No Do you have any abdominal pain?: No Are you experiencing loss of taste or smell?: No [facility] Anesthesia Checklist Patient Identification Patient Identification: Arm Band and Verbal (Name & ) Structural Data Admitted From: Home Planned Operative Procedure/s: colonoscopy Consent for Planned Operative Procedure(s) Verified: Yes Verified Documents: Surgical Consent NPO Status Verified Time NPO: 00:00 Chart Verification Results Verified: None Additional verifications Patient : No Anesthesia Reactions: No Hx Blood Transfusions: No Blood Transfusion Reaction: No Cephalosporin Allergy: No Airway Assessment Mallampati Score:: Class I C-Spine Mobility Assessed: Yes TMJ Mobility Assessed: No Dentition: Good Dentition Neurological Assessment Level of Consciousness: Awake, Alert and Appropriate Hx Seizures: No Numbness or tingling in extremities: No Anesthesia Plan Anesthesia Risk discussed: Yes Anesthesia Plan: Verified ASA Class: I Anesthesia Type: MAC
--- NOTE | 2025-02-19 09:01 | P.HP_ITS ---
History of Present Illness *Admission Date: 02/19/25 *Reason for visit:: Screening for colon cancer *History of present illness: Mrs. Chapin is a 49-year-old female who is here for screening colonoscopy. The examination is deemed medically necessary for screening colonoscopy. The patient has been seen, interviewed and examined prior to the procedure by both myself and the anesthesia provider. [facility] Disclaimer: The information contained in this section may have been updated after the patient was seen, as this information can be updated by other users. Medical History Migraine Insomnia Squamous cell carcinoma Surgical History History of section Hx of wisdom tooth extraction History of carpal tunnel release of both wrists History of repair of ACL Family History Other No significant family history Squamous cell carcinoma Social History Smoking Status: Former smoker tobacco type: cigarettes packs per day: 1 alcohol intake: never substance use type: denies use current occupational status: employed Travel in the last 8 weeks: None household members: family caffeine: Yes Have you lived/traveled outside US in past 30 days?: No Contact w/someone who lives/traveled outside US past 30 days?: No Exposure to someone with infectious disease in past 14 days?: No Do you have a fever (greater than 100.4 F or 38 C)?: No Have you tested positive for COVID-19: No Exposed to someone with COVID-19 in past 14 days?: No Do you have a sore throat?: No Do you have a cough?: No Do you have any weakness?: No Are you experiencing any nausea/vomitting?: No Do you have any diarrhea?: No Are you experiencing any unusual bleeding?: No Do you have any muscle aches/pain?: No Do you have any abdominal pain?: No Are you experiencing loss of taste or smell?: No Other Medical History Have you received the Flu Vaccine for this season: No Have you received the Pneumonia Vaccine: No Review of Systems Review of Systems Review of systems (narrative): Negative *Cardiovascular Comments: Negative *Gastrointestinal Comments: Negative *Genitourinary Comments: Negative *Musculoskeletal Comments: Negative *Neurologic Comments: Negative Meds Home Medications and Allergies Home Medications ?Medication ?Instructions ?Recorded ?Confirmed ?Type diclofenac sodium 75 mg 75 mg PO BID 01/24/25 02/19/25 History tablet,delayed release ubrogepant 100 mg tablet (Ubrelvy) 100 mg PO NEEDED PRN Migraine 01/24/25 02/19/25 History Headache sodium,potassium,mag sulfates 17.5 See Rx Instructions PO .COMPLEX 02/05/25 02/19/25 Rx gram-3.13 gram-1.6 gram oral soln #354 mL (Suprep Bowel Prep Kit) trazodone 50 mg tablet 50 mg PO HS 02/16/25 02/19/25 History New Prescriptions to Start Prescriptions: Allergies Allergy/AdvReac Type Severity Reaction Status Date / Time No Known Allergies Allergy Verified 02/19/25 08:14 Exam Data for Last 24 hours Vital signs and Labs for Last 24 Hours: Temp Pulse Resp BP Pulse Ox O2 Del Method 98.4 F 78 16 120/69 98 Room Air 02/19/25 08:17 02/19/25 08:17 02/19/25 08:17 02/19/25 08:17 02/19/25 08:17 02/19/25 08:17 Laboratory Results - last 24 hr 02/19/25 08:07: Urine HCG, Qual Negative I & O for Last 24 hours: Intake & Output 02/16/25 02/17/25 02/18/25 02/19/25 23:59 23:59 23:59 23:59 Weight 192 lb *Routine HEENT Exam Head: Present normocephalic Eye: Present EOMI and PERRL ENT: Present mucous membranes moist *Routine Neck Exam Neck: Present supple *Routine Respiratory Exam Respiratory: Present CTA bilaterally *Routine Cardiovascular Exam Cardiovascular: Present RRR *Routine Abdominal Exam Abdominal: Present soft and normoactive bowel sounds; Absent tenderness *Routine Rectal Exam Rectal:: deferred *Routine Genitalia Exam Genitalia:: deferred *Routine Extremities Exam Extremities: Absent cyanosis, clubbing or edema *Routine Skin Exam Skin: Present warm; Absent rash *Routine Neurological Exam Neurological: Present alert and oriented X3 Assessment and Plan *Assessment and plan (1) Screening for malignant neoplasm of colon: Status: Acute Category: Medical Code(s): Z12.11 - Encounter for screening for malignant neoplasm of colon Plan A/P: 1. Screening colonoscopy is the preprocedural diagnosis. The patient will be anesthetized/sedated using MAC sedation. The patient has been seen and examined. Cardiac and lung assessment prior to the examination is stable. Proceed with planned screening colonoscopy.
[2025-02-19 09:11] VITALS: O2SAT 100
--- NOTE | 2025-02-19 09:13 | HMH.PROCNOTE ---
[facility] Procedure Note Date: 02/19/25 Time: 09:27 Procedure Note:: Colonoscopy Procedure Report: Colonoscopy with cold biopsies Endoscopist: Viet Wang II, MD Referring physician: Suresh Sam M.D. Date of Procedure: February 19, 2025 Equipment: Olympus 190 variable stiffness pediatric colonoscope Sedation: MAC sedation Indication: Mrs. Chapin is a 49-year-old female who is here for initial screening colonoscopy. She reports no abdominal pain, weight loss, rectal bleeding or family history of colon cancer. She does state that she had a E. coli last April and has had looser bowel movements since that time. She does have a first cousin with Crohn's disease. The patient has had some mild escalation of her liver chemistries in December and these have returned back to the normal range. She did have a gallbladder ultrasound/liver ultrasound on 01/19/2025 that showed a normal liver and gallbladder with no biliary ductal dilation. Procedure: Prior to the procedure, a history and physical exam was performed, and patient's medications and allergies were reviewed. The risks, benefits and alternatives of the sedation and procedure were discussed with the patient. All questions were answered and informed consent was obtained. The patient was brought to the procedure room. Patient identification and proposed procedure were verified by the physician and the nurse. The patient was placed in a left lateral decubitus position and the scope was passed under direct vision. Throughout the procedure, the patient's blood pressure, pulse, and oxygen saturations were monitored continuously. The colonoscopy was accomplished without difficulty. The patient tolerated the procedure well. Findings: On digital rectal examination there was normal rectal tone. There were no external hemorrhoids. The colonoscope was introduced through the anal canal to the rectum and advanced to the cecum. The ileocecal valve and appendiceal orifice were identified. The scope was advanced a short distance into the ileum which appeared grossly normal. The scope was then withdrawn into the colon. The cecum, ascending, transverse, descending, sigmoid and rectum were grossly normal. There were no mucosal abnormalities identified. Random biopsies were taken from the right colon to rule out microscopic colitis. Upon retroflexion within the rectum there were grade 1 internal hemorrhoids. The preparation was excellent throughout with [place] Preparation Score of 9. The cecal time was 12 minutes. Impression: 1. Normal colonoscopy with intubation of the terminal ileum Plan: The patient will not require surveillance colonoscopy again for 10 years by ACS guidelines. I will follow-up the biopsies to rule out microscopic colitis. 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 I would encourage bulking fiber supplementation. If her IBS?D persists, would consider adding Viberzi.
[2025-02-19 09:30] VITALS: BP 140/74; PULSE 76; RESP 18; TEMP 36.6; O2SAT 100
[2025-02-19 09:40] VITALS: BP 127/67; PULSE 89; RESP 18; O2SAT 99
[2025-02-19 09:50] VITALS: BP 135/71; PULSE 78; RESP 18; O2SAT 99
[2025-02-19 10:00] VITALS: BP 121/56; PULSE 75; RESP 18; O2SAT 100
== END 2025-02-19 10:08 | disposition home or self-care (01) ==
PROVIDERS: PCP Internal Medicine Adolescent Medicine; Visit Provider Internal Medicine Gastroenterology
PROC: 0DJD8ZZ Inspection of Lower Intestinal Tract, Via Natural or Artificial Opening Endoscopic (ICD-10-PCS; CPT 45378; principal; 2025-02-19 09:00)
DX: Z12.11 Encounter for screening for malignant neoplasm of colon (principal); K64.0 First degree hemorrhoids
CPT/HCPCS: 45380; 81025; J7120

== ENCOUNTER 2025-10-16 16:14 | Outpatient (CLI) | payer OTHER, SELFPAY ==
--- OUTSIDE RECORDS SUMMARY | 2025-10-16 16:16 | XMS_ITS | Encounter Summary ---
Author Organization [facility] Address [address] [id number] Care Team Providers Care Rn Relief Charge Name Role Phone Suresh Sam MD Primary Care Provider [phone] Jaswant Finnegan MD Unavailable [phone] Geremias Osorio MD Unavailable [phone] Reason for Referral * Consultation (Routine) - Closed Specialty Diagnoses / Procedures Referred By Misti isabel Referred To Contact Orthopaedic Surgery Diagnoses New ACL tear, left, initial encounter Dontae Enriquez MD [address] [facility] [address], [place] [address] Phone: tel: fax: [facility] [address] [place] [address] Phone: tel: fax: Referral ID Status Reason Start Date Expiration Date V isits Requested Visits Authorized [id number] Closed Specialty Services Required 04/06/2022 10/06/2023 1 1 Encounter Details Date Type Department Care Team (Late st Contact Info) Description 04/06/2022 Community [facility] Community Practice [address] [place] [address] Dontae Enriquez MD [address] [facility] [address], [place] [address] New ACL tear, left, initial encounter (Primary Dx) Social History Tobacco Use Types Packs/Day Years Used Date Smoking Tobacco: Every Day Cigarettes Smokeless Tobacco: Never Alcohol Use Standard Drinks/Week Comments Not Currently 0 (1 standard drink = 0.6 oz pur e alcohol) Comments Unknown Sex and Gender Information Value Date Recorded Sex Assigned at Female 11/06/2021 9:37 AM EST Legal Sex Female 6:04 PM EDT Gender Identity Female 11/06/2021 9:37 AM EST Sexual Orientation Not on file COVID-19 Exposure Response Date Recorded In the last 10 days, have yo u been in contact with someone who was confirmed or suspected to have Coronavirus/COVID-19? No / Unsure 04/08/2022 3:41 PM EDT documented as of this encounter Plan of Treatment Scheduled Referrals Name Type Priority Associated Diagnoses Order Schedule Ambulatory referral to General Orthopaedics Outpatient Referral Routine New ACL tear, left, initial encounter Expected: 04/06/2022 (Approximate), Expires: 10/06/2023 documented as of this encounter Visit Diagnoses Diagnosis New ACL tear, left, initial encounter- Primary documented in this encounter Additional Health Concerns Assessment Noted Time A fall risk assessment has been complete d for the patient 11/13/2021 8:58 AM EST documented as of this encounter Care Teams Rn Relief Charge Relationship Specialty Start Date End Date Suresh Sam MD [facility] 2A [address] PCP - General 10/10/21 Jaswant Finnegan MD [address] [place] [address] Surgeon Neurosurgery 10/10/21 Geremias Osorio MD [address] [place] [address] Surgeon Neurosurgery 11/13/21 documented as of this encounter
--- OUTSIDE RECORDS SUMMARY | 2025-10-16 16:16 | XMS_ITS | Clinical Summary ---
Author Organization [facility] Address [address] [place] [address] Care Team Providers Care Bullard Machine Operator Name Role Phone Suresh Sam MD Primary Care Provider [phone] Jaswant Finnegan MD Unavailable [phone] Geremias Osorio MD Unavailable [phone] Allergies No known active allergies Medications Ubrelvy 100 MG tablet Take 1 tablet (100 mg) by mouth if needed. 1 Active oxyCODONE (Roxicodone) 5 MG immediate release tablet Take 1 tablet (5 mg total) by mouth every 4 (four) hours if needed for severe pain. 40 tablet 2 Active Additional Information Patient not taking.Reported on 05/25/2024 promethazine (Phenergan) 25 MG tablet Take 1 tablet (25 mg total) by mouth every 8 (eight) hours if needed for nausea or vomiting. 10 tablet 2 Active cyanocobalamin 1000 MCG tablet TAKE 1 TABLET BY MOUTH ONCE DAILY FOR 90 DAYS 3 Active metoprolol succinate XL (Toprol-XL) 25 MG 24 hr tablet Take 1 tablet (25 mg) by mouth 1 (one) time each day. 3 Active B-D 3CC LUER-EMILE SYR 25GX1 25G X 1 3 ML misc USE DIRECTED ONCE a WEEK 4 Active diclofenac (Voltaren) 25 MG EC tablet Take 1 tablet (25 mg) by mouth 2 (two) times a day. Do not crush, chew, or split. Active Active Problems Problem Noted Date Diagnosed Date New ACL tear, left, initial encounter 04/08/2022 Overview (04/08/2022): Added automatically from request for surgery [id number] Acute medial meniscus tear of left knee 04/08/20 Overview (04/08/2022): Added automatically from request for surgery [id number] Lesion of frontal lobe of brain 11/12/2021 Family History Medical History Relation Name Comments Diabetes Father Anesthesia problems Neg Hx Relation Name Status Comments Father Social History Tobacco Use Types Packs/Day Years Used Date Smoking Tobacco: Every Day Cigarettes Smokeless Tobacco: Never Tobacco Cessation:Ready to Q uit: Not Asked; Counseling Given: Not Answered Alcohol Use Standard Drinks/Week Comments Not Currently 0 (1 standard drink = 0.6 oz pur e alcohol) PHQ-2 Answer Date Recorded Patient Health Questionnaire-2 Score 0 02/01/2023 PHQ-2A Answer Date Recorded Patient Health Questionnaire-2 Score 0 02/01/2023 Comments No Sex and Gender Information Value Date Recorded Sex Assigned at Female 11/06/2021 9:37 AM EST Legal Sex Female 6:04 PM EDT Gender Identity Female 11/06/2021 9:37 AM EST Sexual Orientation Not on file Last Filed Vital Signs Vital Sign Reading Time Taken Comments Blood Pressure 122/70 05/25/2024 12:38 PM EDT Pulse 86 08/05/2023 2:18 PM EDT Temperature 36.6 C (97.8 F) 08/05/2023 2:18 PM EDT Respiratory Rate 18 04/21/2022 1:15 PM EDT Oxygen Saturation 98% 08/05/2023 2:18 PM EDT Inhaled Oxygen Concentration - - Weight 89.8 kg (198 lb) 05/25/2024 12:38 PM EDT Height 170.2 cm (5' 7 ) 05/25/2024 12:38 PM EDT Body Mass Index 31.01 05/25/2024 12:38 PM EDT Plan of Treatment Health Maintenance Due Date Last Done Comments [facility]-HIV Screening 1976 [facility]-Hepatitis C Screening 1976 [facility]-/Child/Adol SDOH Screenings 1976 [facility]- SDOH Screenings 1994 [facility]-Adult SDOH Screenings 1994 [facility]-DTaP,Tdap,and Td Vaccines (1 - Tdap) 1995 [facility]-Hepatitis B Vaccines (1 of 3 - 19+ 3-dose series) 1995 [facility]-Pneumococcal Vaccine: Pediatrics (0 to 5 Years) and At-Risk Patients (6 to 49 Years) (1 of 2 - PCV) 1995 [facility]-Pap Smear 1997 [facility]-Cervical Cancer Screening 2006 [facility]-HPV/Cotest 2006 [id number] Vaccine (3 - Moderna risk series) 04/18/2021 03/21/2021, 02/21/2021 CT Colonography 2021 Colonoscopy 2021 FIT-DNA 2021 FIT 2021 FOBT 2021 Sigmoidoscopy 2021 [facility]-Colorectal Cancer Screening 2021 [facility]-Depression Screening 02/02/2024 02/01/2023 [facility]-Influenza Vaccine (#1) 2025 08/21/2020, [facility]-Zoster Vaccines (1 of 2) 2026 [facility]-Hepatitis A Vaccines Aged Out 08/08/2018 No longer eligible based on patient's age to complete this topic [facility]-Obesity Intervention Completed 024, 08/05/2023, 05/13/2023, Additional history exists HPV Vaccines (No Doses Required) Completed [facility]-HIB Vaccines Aged Out No longer e ligible based on patient's age to complete this topic [facility]-IPV Vaccines Aged Out No longer e ligible based on patient's age to complete this topic [facility]-Rotavirus Vaccines Aged Out No lo nger eligible based on patient's age to complete this topic Medical Devices Implanted Type Area Soa Architect Device Identifier Shelf Expiration Date Model / Serial / Lot Hip Stem Fast Fix 360 - [id number] - [id number] Implanted:Qty: 2 on 04/21/2022 by Can Perkins MD at [facility] Left: Knee [employer] (Acufex)-[id number] 02/09/2025 [id number] / [id number] / Hip Stem Fast Fix 360 - [id number] - [id number] Implanted:Qty: 1 on 04/21/2022 by Can Perkins MD at [facility] Left: Knee [employer] (Acufex)-[id number] 12/09/2024 [id number] / [id number] / [place] Fastlok 6mm X 23mm - [id number] - [id number] Implanted:Qty: 1 on 04/21/2022 by Can Perkins MD at [facility] Left: Knee [employer]-[id number] 12/09/2026 [id number] / [id number] / Screw Biosure Regenesorb Interference 8 X 20mm - [id number] - [id number] Implanted:Qty: 1 on 04/21/2022 by Can Perkins MD at [facility] Left: Knee [employer] (Acufex)-[id number] 11/06/2024 [id number] / [id number] / Screw Biosure Regen [id number] - [id number] - [id number] Implanted:Qty: 1 on 04/21/2022 by Can Perkins MD at [facility] Left: Knee [employer] (Acufex)-[id number] 12/26/2024 [id number] / [id number] / Insurance [facility] Care Teams Bullard Machine Operator Relationship Specialty Start Date End Date Suresh Sam MD [address] [address] [facility] - General 10/10/21 Jaswant Finnegan MD [address] [place] [address] Surgeon Neurosurgery 10/10/21 Geremias Osorio MD [address] [place] [address] Surgeon Neurosurgery 11/13/21
--- OUTSIDE RECORDS SUMMARY | 2025-10-16 16:16 | XMS_ITS | Data Portability ---
Author Organization [facility] Address [address] [facility] [address] [place] [address] Care Team Providers Care Oracle Ebs Consultant Name Role Phone LAYO HICKS Primary Care Provider [phone] Assessment No assessment recorded. Plan of Treatment Reminders Order Date Submit Date Provider Last Modified By Organization Details Last Modified Time Details Appointments None recorded. Lab None recorded. Referral None recorded. Procedures None recorded. Surgeries None recorded. Imaging None recorded. Medication Orders metoprolol succinate ER 50 mg tablet,exte nded release 24 hr 2022 023 [facility], [address] [facility], [place], [address], 15:06:28 Patient TargetsNo targets recorded. Patient Instructions Encounter Date Encounter Id Patient Instructions Last Modified By Organization Details Last Modified Time 07/29/2023 [id number] body mass index: care instructions Not available 07/29/2023 09:30:57 08/30/2023 [id number] body mass index: care instructions Not available 08/30/2023 15:06:15 Reason for Referral None Reported. Results Created Date Observation Date Name Description Value Unit Range Abnormal Flag Note LastModifiedBy Organization Detail LastModifiedTime 07/14/2006/14/2023 viktoria r monit or No observ ation record ed. [email or web address] [facility] [address], [place], [address], 07/14/2023 14:10:04 07/30/2007/29/2023 [facility] am No observ ation record ed. BARCODE Not Available 2022 07:58:42 08/30/2008/30/2023 US, doppl er echoc ardio gram, w/ color flow No observ ation record ed. [email or web address] [facility] Radiology Cardiology [address], [place], [address], 08/30/2023 15:09:49 08/30/2008/30/2023 exerc ise stres s test No observ ation record ed. [email or web address] Not Available 2022 15:09:45 Result Notes None recorded. Procedures Surgical History Date Name Laterality Status Provider Name and Address Organization Details Recorded Time Stress Test - Exercise Treadmill completed NASRA KRUEGER MD [address] [place] [address], [phone], [facility] 08/30/2023 14:40:11 3 EKG completed [facility] 07/29/2023 08:59:14 section completed [facility] 07/29/2023 08:57:37 Other completed [facility] 07/29/2023 08:57:48 Other completed [facility] 07/29/2023 08:57:58 Other completed [facility] 07/29/2023 08:58:21 Imaging Results None recorded. Procedure Notes None recorded. Medical Equipment None Reported. Allergies No known drug allergies Medications Name Sig Start Date Stop Date Status Note LastModified by Organization Details LastModified Time metoprolol succinate ER 50 mg tablet,exten ded release 24 hr Take 1 tablet every day by oral route. 2022 active Not Available Not Available Not Avai lable metoprolol tartrate 50 mg tablet Take 1 tablet every day by oral route. 08/30 completed Not Available Not Available Not Available Vitamin B12 qd active Not Available Not A vailable Not Available Vitals Date Recorded Body weight Body mass index (BMI) Body height Heart rate Systolic And Diastolic Provider Name and Address Organization Details Last Updated DateTime 07/29/2023 915390.5 1 g 34.8 kg/m2 170.18 cm 72 /min 124/86 mm[Hg] Emilia Ambriz [facility] 07/29/2023 09:02:25 Date Recorded Body height Body mass index (BMI) Body weight Heart rate Systolic And Diastolic Provider Name and Address Organization Details Last Updated DateTime 08/30/2023 170.18 cm 35.4 kg/m2 080634.8 8 g 83 /min 118/86 mm[Hg] Emilia Ambriz [facility] 08/30/2023 15:00:01 Social History Question Answer Notes LastModified by Organizat ion Details LastModified Time Tobacco Smoking Status Former Smoker Emilia Ambriz [facility] 07/29/2023 08:57:06 When Did You Quit Smoking? 1-5yearssinc [email or web address] te Information not available 07/29/2023 What Was The Date Of Your Most Recent Tobacco Screening? 08/30/2023 [email or web address] Information not available 08/30/2023 Has Tobacco Cessation Counseling Been Provided? No [email or web address] Information not available 07/29/2023 Sex: Unknown Functional Status Question Answer Note LastModified by Organizat ion Details LastModified Time Do you or have you ever used any other forms of tobacco or nicotine? No Information not available 07/29/2023 What is your level of alcohol consumption? Occasional [email or web address] Information not available 07/29/2023 Mental Status None recorded. Family History Relationship Description Onset Age of this Age Resolved Age Notes LastModified by Organization Details LastModified Time Unspecified Relation Family history of malignant neoplasm [email or web address] Not available 2022 08:58:46 Father Diabetes mellitus [email or web address] Not available 2022 08:58:54 Medical History No medical history recorded. Gynecological HistoryNo gynecological history recorded. Obstetrics History GPAL:G 0 P 0 0 0 0 Past Encounters Encounter ID Performer Location Encounter Start Date Encounter Closed Date Diagnosis/Indication Diagnosis SNOMED-CT Code Diagnosis ICD10 Code Diagnosis IMO Codes Diagnosis Note [id number] NASRA KRUEGER MD CARDIOLOG [address] [place] [address] 07/29/2023 08:21:30 07/29/2023 09:34:54 Obesity 661307867 E66.9 Multiple p remature ventricular complexes 708816367 I49.3 The patient has a heavy PVC burden that is symptomati c. Stress testing will be performed to rule out exercise mediated ventricula r tachycardi a and an echocardio gram will be obtained to rule out associated structural heart disease. Should there be absence of structural heart disease she can be considered with a drug trial using a type Ic antiarrhyt hmic agent. If there is associated LV dysfunctio n then she will be considered for first-line catheter ablation. [id number] NASRA KRUEGER MD [facility] [address] ,[address] [place] [address] 08/30/2023 12:55:52 08/30/2023 15:19:24 [id number] NASRA KRUEGER MD CARDIOLOG Y [address] ,[address] [place] [address] 08/30/2023 12:56:12 08/31/2023 10:07:37 Obesity 587150844 E66.9 Palpitations 29685321 R0 0.2 Multiple p remature ventricular complexes 975347266 I49.3 The patient's PVC burden has dramatical ly improved. There is no underlying structural heart disease. A watchful waiting approach is recommende d with resumption of beta-block er should the be recurrent arrhythmia . If this drug is not successful she can be considered for type Ic entity. Health Concerns Section Related Observation LastModified by Organization Detai ls LastModified Time None Recorded Concern Status LastModified by Organization Details LastModified Time None Recorded Advance Directives Directive None Recorded Payers Insurance Date Sequence Insurance Name Policy Number Policy Cannon Covered Member ID Cannon Member ID Guarantor Name 08/27/2023 1 [facility] [id number] Dawn Chapin [id number] Dawn Chapin Notes Date Note Type Note Provider Name and Address Organization Details Recorded Time 07/29/2023 text/html ROS as noted in the HPI Mrs. Chapin is seen as a new patient with a history of palpitations. She first noted these palpitations in 2019. A video game tester showed a very low burden of PVCs. She was treated with propranolol with resolution. She then noticed that this lost efficacy to the point that she was experiencing palpitations throughout the entire day. She was changed to metoprolol which was associate with some decrease in forceful contractions but her symptoms persisted despite and ultimately increased to 50 mg twice daily. Holter monitoring showed a 25% PVC burden including bigeminy and trigeminy A 1% AF burden was reported but is not available for confirmatory review. She presently is not taking her beta-jenn She notes dyspnea associate with her palpitations but is not experiencing any orthopnea or PND. She denies any history of chest pain or obstructive sleep apnea. She has not experienced any syncope. She has noted some edema and has uses some krrk-xmg-oqhwcvv diuretics which has been of some benefit. She notes that her ectopy seems to decrease with activity. She has noted that her palpitations may occur every fourth heartbeat. She is not exposed to caffeine or alcohol. Her total cholesterol is 231 with an LDL of 147 and HDL of 54 associate with a low 1.2% 10-year ASCVD risk. IRN4FF9-YKPd score is 1 Thyroid function testing is normal. NASRA KRUEGER MD [address] [place] [address], [phone], [facility] 07/29/2023 09:31:21 08/30/2023 text/html ROS as noted in the HPI Mrs. Chapin returns for f/u after echo and stress testing for PVC evaluation. She first noted these palpitations in 2019. A video game tester showed a very low burden of PVCs. She was treated with propranolol with resolution. She then noticed that this lost efficacy to the point that she was experiencing palpitations throughout the entire day. She was changed to metoprolol which was associated with some decrease in forceful contractions but her symptoms persisted despitean increase to 50 mg twice daily.Holter monitoring showed a 25% PVC burden including bigeminy and trigeminyA 1% AF burden was reported but was not available for confirmatory review.She presently is not taking her beta-blockerShe noted that her ectopy seems to decrease with activity. She has noted that her palpitations may occur every fourth heartbeat.She is not exposed to caffeine or alcohol.Her total cholesterol is 231 with an LDL of 147 and HDL of 54 associate with a low 1.2% 10-year ASCVD risk.AOY0AP8-CSZz score is 1Thyroid function testing is normal. As last being seen she has noted a significant decrement in her palpitation burden. He is wondering whether the palpitations might of been due to stress as a result of building a house. Stress testing today is abnormal nondiagnostic. There is no resting or exercise-induced ventricular arrhythmia. Echocardiography today is normal. NASRA KRUEGER MD [address] [place] [address], [phone], [facility] 08/30/2023 15:09:30 OBGyn Episode No OBEpisode recorded.
--- OUTSIDE RECORDS SUMMARY | 2025-10-16 16:16 | XMS_ITS | Encounter Summary ---
Author Organization [facility] Address [address] [place] [address] Care Team Providers Care Breakfast Server Name Role Phone Suresh Sam MD Primary Care Provider [phone] Jaswant Finnegan MD Unavailable [phone] Geremias Osorio MD Unavailable [phone] Encounter Details Date Type Department Care Team (Latest Contact Info) Description 06/23/2023 Community [facility] Community Practice [address] [place] [address] Joyce Fuentes INDUSTRIAL ENGINEERING INTERN [address] Palpitations (Primary Dx) Social History Tobacco Use Types [...] AM EST Sexual Orientation Not on file documented as of this encounter Plan of Treatment Not on file documented as of this encounter Visit Diagnoses Diagnosis Palpitations- Primary documented in this encounter Additional Health Concerns Assessment Noted Time A fall risk assessment has been complete d for the patient 05/13/2023 7:57 AM EDT A Body Mass Index follow-up plan has been documented for the patient 05/13/2023 11:35 AM EDT documented as of this encounter Care Teams Breakfast Server Relationship Specialty Start Date End Date Suresh Sam MD [facility] 2A [address] PCP - General 10/10/21 Jaswant Finnegan MD [address] [place] [address] Surgeon Neurosurgery 10/10/21 Geremias Osorio MD [address] [place] [address] Surgeon Neurosurgery 11/13/21 documented as of this encounter
--- NOTE | 2025-10-16 16:17 | XR_ITS ---
FINAL REPORT CLINICAL HISTORY: PAIN IN MULTIPLE FINGER JOINTS COMPARISON: None FINDINGS: Three views of the right hand show no evidence of acute displaced fracture or dislocation of the visualized bony architecture. Mild osteoarthritic changes in the MCP, PIP, and most significantly in the DIP joints. No evidence of erosion. IMPRESSION: Osteoarthritic changes without acute bony abnormality. Reviewed, Interpreted and Dictated by Dana Munoz MD Transcribed by Jacqueline Hua Authenticated and [facility]
[2025-10-16 18:03] LABS: C-Reactive Protein 1.7 mg/L (0-4)
[2025-10-16 18:16] LABS: 25-OH Vitamin D, Total 41.4 ng/mL (30-100)
[2025-10-16 18:48] LABS: Vitamin B12 278 pg/mL (239-931)
== END 2025-10-16 23:59 ==
LOC: RAD 16:15
PROVIDERS: PCP Internal Medicine Adolescent Medicine
DX: M19.041 Primary osteoarthritis, right hand
CPT/HCPCS: 36415; 73130; 82306; 82607; 85651; 86140